=== PATIENT | female | born 1985 | race Caucasian/White ===

== ENCOUNTER 2024-12-14 10:06 | Outpatient (AMB) | payer OTHER, SELFPAY ==
--- NOTE | 2024-12-14 10:08 | A.OFFVIS_ITS ---
Vital Signs 3 12/14/24 10:17 Height 5 ft 4.5 in Weight 284 lb 6 oz BMI 48.1 BP 114/72 Blood Pressure Location Lt brachial Position Sitting Pulse 94 Pulse Source Pulse Oximeter Pulse Oximetry (%) 96 Oxygen Delivery Method Room Air Intake Visit Reasons: Chronic back pain Intake Note: Pain today 04/08 Bark Peeler Required: No Accompanied by: BHN worker Allergies meperidine [From Demerol] Allergy (Mild, Verified 12/14/24 10:16) Unknown seafood Allergy (Mild, Verified 12/14/24 10:16) Unknown acetaminophen [From Tylenol] Allergy (Unknown, Verified 12/14/24 10:42) Unknown Iodinated Contrast Media Allergy (Unknown, Verified 12/14/24 10:41) Unknown pregabalin [From Lyrica] Allergy (Unknown, Verified 12/14/24 10:16) Unknown tramadol Allergy (Unknown, Verified 12/14/24 10:42) Unknown HPI HPI Chronic back pain: Details: The patient is a 39-year-old female presenting with chronic low back pain. This has been a long standing issues for her for past 20 years. The pain's location encompasses the head, neck, middle and lower back, radiating to her legs with a stabbing, shooting, and throbbing quality. This pain is persistent and aggravated by various physical activities including walking and sitting for extended periods. There is significant coexistent morbidity with acute left leg ulcers, bilateral lower extremity edema and erythema tied to venous insufficiency. Reports previous back surgery at [facility] 15 years ago with postoperative complications leading to persistent pain. Various non-invasive therapies are mostly unutilized aside from sporadic past physical therapy sessions, the last being over 7-8 years ago. The patient continues taking significant amount of ibuprofen for pain control despite awareness of potential renal injury. Her functional capacities are greatly compromised; daily activities and self-care are limited, compounded by mental health concerns like severe depression, implication of social networks and routine psychiatric assistance. Denies any fever or chills, abdominal or groin pain, foot drop, bowel dysfunction, or saddle anesthesia. Reports chronic urinary incontinence. - Onset: Approximately 20 years ago - Quality: Stabbing, shooting, spasming, aching, radiating, heavy, tiring, sharp - Primary Locations: Head, neck, mid and lower back, bilateral knee and legs - Radiation: Into legs without specific dermatome distribution. Open ulcers LLE with bilateral leg edema and erythema. - Exacerbating Factors: Standing, walking, sitting, positional changes, climbing stairs - Relieving Factors: Ibuprofen provides minimal relief. Soaking in a tub - Interference: Self-care activities, daily living tasks, bending down and sleep. - Affect: Significant impact on mood with severe depression noted. - Analgesia: Currently using ibuprofen 800 mg 6-10 tablets/day ; aware of kidney risks. - Adverse Effects: Potential nephrotoxicity from chronic ibuprofen usage. - Activities of Daily Living: Severely affected; requires assistance with self- care and ambulation. Uses cane/walker. - Aberrant Drug Related Behaviors: No inappropriate use of medications reported. Reports chronic fatigue with medications. [facility] Medical History (Updated 12/14/24 @ 14:48 by GIBRAN Edge) Leg wound, left Hypocalcemia Hyperlipidemia Therapeutic Varicose veins of legs Urinary incontinence Pre-diabetes Multiple sclerosis History of seizure Disturbance of sleep Cornual Constipation MIKE II (cervical intraepithelial neoplasia II) Chronic vomiting Chronic chest pain Chronic back pain Chronic abdominal pain Cerebral edema Blood pressure elevated without history of HTN Black-out (not amnesia) Asymptomatic bacteriuria Anxiety and depression Alternating constipation and diarrhea Severe depression Costochondritis Chronic low back pain Surgical History (Updated 12/14/24 @ 13:50 by GIBRAN Edge) History of back surgery (09/30/09) Social History Alcohol intake: never Tobacco use type: Cigarette Cigarette Packs Per Day: 1 Review of Systems Const Details: - Musculoskeletal: Reports severe limitations in physical activity, impaired use of arms, difficulty with self-care tasks. - Integumentary: Reports significant leg swelling, erythema, chronic ulcers on legs - Neurologic: Denies recent seizures; longstanding history of seizures. - Gastrointestinal: Reports chronic vomiting, constipation. - Psychological: Reports anxiety, disrupted sleep, severe depression. All systems reviewed & are unremarkable except as noted in HPI and below Physical Exam General: Appears afebrile. Morbidly obese. Alert and oriented. No acute distress. Mood and affect appropriate. Tired appearing. Follows and participates in conversation appropriately. Respiratory effort is unlabored. No cough. Able to transition from sit to stand unassisted. Ambulates with bilaterally normal heel strike and toe off. Uses cane with ambulation. Decreased strength in upper and lower extremities. Limited range of motion in back. Painful facet loading. Significant edema, erythema, and warmth in both legs; open ulcers on the left lower leg with Vern wrap dressing. Bilateral knee with limited ROM due to pain and body habitus. +Crepitus with flexion. Extrem Other: Results Reviewed Results Reviewed: No imaging results are available for review today. Assessment & Plan Assessment & Plan (1) Chronic low back pain: Code(s): M54.50 - Low back pain, unspecified; G89.29 - Other chronic pain Category: Medical (2) Pain in both knees: Code(s): M25.561 - Pain in right knee; M25.562 - Pain in left knee (3) Degeneration of intervertebral disc of lumbar region: Code(s): M51.369 - Other intervertebral disc degeneration, lumbar region without mention of lumbar back pain or lower extremity pain (4) Mid back pain: Code(s): M54.9 - Dorsalgia, unspecified Category: Medical (5) Edema of both lower extremities: Code(s): R60.0 - Localized edema Category: Medical (6) Ulcer of left lower leg: Code(s): L97.929 - Non-pressure chronic ulcer of unspecified part of left lower leg with unspecified severity Category: Medical Plan Plans include obtaining updated imaging for the lumbar spine and knees, initiating an outpatient physical therapy regimen, and continuing management of chronic leg ulcers secondary to venous insufficiency. Interventional pain management procedures are postponed until LLE ulcer clearance and healing of BLE edema and erythema. A review of medications is pending further kidney function assessment. Collaborations will be conducted with her primary care provider to ensure comprehensive management of her medical conditions and recent lab work review. Patient is aware that our office does not offer opioid prescribing. Script provided for diclofenac topical gel. Side effects and precautions discussed with patient. All questions and concerns have been answered and patient agreed with the plan. Follow up for xray results/after PT and sooner as needed. Patient was informed and verbally consented to the use of an ambient scribe for clinic note documentation during this visit. Orders: Orders 2 XR knee RT 3V Today M25.561 - Pain in right knee, M25.562 - Pain in left knee XR lumbar spine 4V min Today G89.29 - Other chronic pain, M51.369 - Other intervertebral disc degeneration, lumbar region without mention of lumbar back pain or lower extremity pain, M54.50 - Low back pain, unspecified XR knee LT 3V Today M25.561 - Pain in right knee, M25.562 - Pain in left knee XR thoracic spine 3V Today M54.9 - Dorsalgia, unspecified PT Evaluation and Treatment Today G89.29 - Other chronic pain, M25.561 - Pain in right knee, M25.562 - Pain in left knee, M51.369 - Other intervertebral disc degeneration, lumbar region without mention of lumbar back pain or lower extremity pain, M54.50 - Low back pain, unspecified, M54.9 - Dorsalgia, unspecified Medications: New 2 diclofenac sodium 1% (Voltaren Arthritis Pain) 4 grams topical QID 100 grams 1RF pain G89.29 - Other chronic pain, M25.561 - Pain in right knee, M25.562 - Pain in left knee, M51.369 - Other intervertebral disc degeneration, lumbar region without mention of lumbar back pain or lower extremity pain, M54.50 - Low back pain, unspecified Patient Instructions: We discussed the current management of her chronic low back pain, focusing on updated imaging and the implementation of physical therapy to enhance musculoskeletal strength. I highlighted the importance of ongoing wound care for her leg ulcers and the ramifications of the cellulitis on interventional procedures. Given the restrictions posed by her current infection, I explained the postponed potential for injections and emphasized the subsequent steps after the resolution of these infections. I discussed the potential for medication revision pending results of kidney function tests, necessitated by her reported ibuprofen intake. The patient expressed adequate understanding of the pain management limitations due to her complex medical and psychological history. Counseling was provided on the continuation of psychiatric management given her severe depression. We have agreed on follow-up for further evaluations dependant of the forthcoming imaging and lab results. - Complete thoracic-lumbar and knee x-rays as discussed. - Attend and engage in physical therapy sessions once started. - Continue prescribed Wound care for leg ulcers. Elevated BLE when sitting. - Avoid NSAIDs in excess and discuss any changes with your primary care physician. - Maintain open communication with psychiatric providers for ongoing mental health management. - Follow up with Vascular consult as planned to address venous issues. - Notify the clinic promptly should any new symptoms arise or if pain management interference occurs. Coding Level of Care Code New Pt Level 4 (36584) Diagnoses Chronic low back pain M54.50; G89.29 Pain in both knees M25.561; M25.562 Degeneration of intervertebral disc of lumbar region M51.369 Mid back pain M54.9 Edema of both lower extremities R60.0 Ulcer of left lower leg L97.929
[2024-12-14 10:17] VITALS: BP 114/72; PULSE 94; O2SAT 96; BMI 48.1
--- OUTSIDE RECORDS SUMMARY | 2024-12-14 11:17 | XMS_ITS | Encounter Summary ---
Author Organization [employer] Address [address] [facility] [address] [place] [address] Care Team Providers Care Professional Golf Tournament Player Name Role Phone Unavailable Primary Care Provider Unavailabl e Encounter Details Date Type Department Care Team (Late st Contact Info) Description 03/11/2023 Telephone [facility] [address] [place] [address] Gabriela Toussaint DDS Social History Tobacco Use Types Packs/Day Years Used Date Smoking Tobacco: Never Assessed Comments Unknown Sex and Gender Information Value Date Recorded Sex Assigned at Female 07/30/2022 10:22 AM EDT Legal Sex Female 10:22 AM EDT Gender Identity Female 07/30/2022 10:22 AM EDT Sexual Orientation Straight 07/30/2022 10 :22 AM EDT COVID-19 Exposure Response Date Recorded In the last 10 days, have yo u been in contact with someone who was confirmed or suspected to have Coronavirus/COVID-19? No / Unsure 03/01/2023 8:39 AM EDT documented as of this encounter Miscellaneous Notes * Telephone Encounter - Yolis Edward - 03/11/2023 8:04 AM EDT The Lab called and stated that the case will be in office on Saturday. documented in this encounter Plan of Treatment Not on file documented as of this encounter Visit Diagnoses Not on filedocumented in this encounter
--- OUTSIDE RECORDS SUMMARY | 2024-12-14 11:17 | XMS_ITS | Clinical Summary ---
Author Organization [employer] Address [address] [facility] [address] [place] [address] Care Team Providers Care Data Integration Architect Name Role Phone Unavailable Primary Care Provider Unavailabl e Allergies Active Allergy Reactions Criticality Noted Date Comments Acetaminophen 07/17/2023 Meperidine 07/17/2023 Pregabalin 07/17/2023 Shellfish Allergy 07/17/2023 Tramadol 07/17/2023 Medications venlafaxine XR (Effexor XR) 150 MG 24 hr capsule Take 150 mg by mouth in the morning. 12/28/2022 Active topiramate (Topamax Sprinkle) 25 MG capsule TAKE 1 TABLET AT BEDTIME FOR 1 WEEK AND THEN INCREASE TO THE 2 TABLETS AT BEDTIME 11/27/2022 Active topiramate (Topamax Sprinkle) 25 MG capsule Take 50 mg by mouth. 11/27/2022 Active prazosin (Minipress) 2 MG capsule TAKE 2 CAPSULES BY MOUTH EVERY DAY AT BEDTIME 12/27/2022 Active naproxen (Naprosyn) 500 MG tablet TAKE 1 TABLET BY MOUTH 2 TIMES A DAY NEEDED FOR PAIN 06/27/2022 Active nystatin (Mycostatin) 703987 UNIT/ML suspension Take 4 to 6ml and swish the liquid in your mouth for as long as possible, then gargle and swallow. Do this four times a day. 473 mL 12/31/2023 Active Social History Tobacco Use Types Packs/Day Years Used Date Smoking Tobacco: Former Cigarettes Smokeless Tobacco: Never Tobacco Cessation:Counseling Given: Not Answered Alcohol Use Standard Drinks/Week Comments Not Currently 0 (1 standard drink = 0.6 oz pur e alcohol) Comments Unknown Sex and Gender Information Value Date Recorded Sex Assigned at Female 07/30/2022 10:22 AM EDT Legal Sex Female 10:22 AM EDT Gender Identity Female 07/30/2022 10:22 AM EDT Sexual Orientation Straight 07/30/2022 10 :22 AM EDT Plan of Treatment Health Maintenance Due Date Last Done Comments Dental Oral Exam 1985 Dental Prophylaxis 1985 Dental X-Ray: Bitewings 1985 Dental X-Ray: Full Mouth 1985 Depression Screening 1985 HIV Screening 1985 Lipid Panel 1985 SDOH Screening 1985 Alcohol/Substance Use Screening 1997 Family Planning (PISQ) 2000 Hepatitis C Screening 2003 DTaP/Tdap/Td Vaccines (1 - Tdap) 2004 Hepatitis B Vaccines (1 of 3 - 19+ 3-dose series) 2004 Pap Smear 2006 Cervical Cancer Screening 2015 HPV/Cotest 2015 COVID-19 Vaccine ( - 2023-2 5 season) 2024 Influenza Vaccine (#1) 2024 Tobacco Screening 01/16/2025 01/17/2024 Zoster Vaccines (1 of 2) 2035 RSV Patients and Pa tients Aged 60 years or older (1 - 1-dose 75+ series) 2060 Hepatitis A Vaccines Aged Out 11/11/2014 No long er eligible based on patient's age to complete this topic HIB Vaccines Aged Out No longer eligi ble based on patient's age to complete this topic HPV Vaccines Aged Out No longer eligi ble based on patient's age to complete this topic IPV Vaccines Aged Out No longer eligi ble based on patient's age to complete this topic Meningococcal Vaccine Aged Out No mariano loida eligible based on patient's age to complete this topic Pneumococcal Vaccine: Pediat rics (0 to 5 Years) and At-Risk Patients (6 to 49) Years) Aged Out No longer elig ible based on patient's age to complete this topic RSV under 20 months Aged Out No longe r eligible based on patient's age to complete this topic Rotavirus Vaccines Aged Out No longer eligible based on patient's age to complete this topic Insurance [facility] MEDICAID STAND ADULT
--- OUTSIDE RECORDS SUMMARY | 2024-12-14 11:17 | XMS_ITS ---
Author Name [facility] Organization Unknown Encounters Encounter Type Encounter Reason Primary Diagnosis Location Date Ambulatory [facility] 10/13/2024
--- OUTSIDE RECORDS SUMMARY | 2024-12-14 11:17 | XMS_ITS | Clinical Summary ---
[facility] Organization [facility] Address [address] [place] [address] Care Team Providers Care Superintendent Landfill Operations Name Role Phone Antione Traylor MD Primary Care Provider [phone] Surgical History Surgery Date Site/Laterality Comments CERVICAL BIOPSY W/ LOOP ELECTRODE EXCISION PROCEDURE: VA CONIZATION CERVIX W/WO D&C RPR ELTRD EXC KNEE SURGERY PROCEDURE: HISTORICAL KNEE SURGERY TONSILLECTOMY PROCEDURE: HISTORICAL TONSILLECTOMY OTHER SURGICAL HISTORY PROCEDURE: VA EXPL RETROPERITONEUM W/WO BX SPX BACK SURGERY PROCEDURE: HISTORICAL BACK SURGERY Family History Medical History Relation Name Comments Autoimmune disease Neg Hx Breast cancer Neg Hx Colon cancer Neg Hx Coronary artery disease Neg Hx Diabetes Neg Hx Heart attack Neg Hx Heart failure Neg Hx Hyperlipidemia Neg Hx Hypertension Neg Hx Mental illness Neg Hx Prostate cancer Neg Hx Sleep apnea Neg Hx Thyroid disease Neg Hx Relation Name Status Comments Father Mother Sister 1 Alive Sister 2 Alive Sister 3 Alive Sister 4 Alive Social History Tobacco Use Types Packs/Day Years Used Date Smoking Tobacco: Every Day Cigarettes Alcohol Use Standard Drinks/Week Comments No 0 (1 standard drink = 0.6 oz pur e alcohol) Comments Unknown Sex and Gender Information Value Date Recorded Sex Assigned at Not on file Legal Sex Female 3:48 PM EST Gender Identity Not on file Sexual Orientation Not on file Obstetrics History Plan of Treatment Health Maintenance Due Date Last Done Comments DTaP,Tdap,and Td Vaccines (1 - Tdap) 2004 Hepatitis A Vaccines (1 of 2 - Risk 2-dose series) 2004 Hepatitis B Vaccines (1 of 3 - 19+ 3-dose series) 2004 Pneumococcal Vaccine: Pediat rics (0 to 5 Years) and At-Risk Patients (6 to 64 Years) (1 of 2 - PCV) 2004 Cervical Cancer Screening: P ap Smear 2006 Depression Screening 08/29/2022 HIV Screening 08/29/2022 Hepatitis C Screening 08/29/2022 Social Influencers of Health Screening 08/29/2022 COVID-19 Vaccine ( - 2023-2 5 season) 2024 Influenza Vaccine (#1) 2024 HIB Vaccines Aged Out No longer eligi ble based on patient's age to complete this topic HPV Vaccines Aged Out No longer eligi ble based on patient's age to complete this topic IPV Vaccines Aged Out No longer eligi ble based on patient's age to complete this topic MMR Vaccines Aged Out No longer eligi ble based on patient's age to complete this topic Meningococcal ACWY Vaccine Aged Out N o longer eligible based on patient's age to complete this topic Meningococcal B Vacine Aged Out No lo nger eligible based on patient's age to complete this topic RSV Immunization Patients Un danya 20 months Aged Out No longer eligible b ased on patient's age to complete this topic Varicella Vaccines Aged Out No longer eligible based on patient's age to complete this topic Care Teams Superintendent Landfill Operations Relationship Specialty Start Date End Date Antione Traylor MD [address] [place] [address] PCP - General Internal Medicine 06/06/18
== END 2024-12-14 10:47 | disposition home or self-care (01) ==
PROVIDERS: PCP Physician Assistant; Visit Provider Nurse Practitioner Family
DX: M54.50 Low back pain, unspecified (principal); G89.29 Other chronic pain; M25.561 Pain in right knee; M25.562 Pain in left knee; M51.369 Other intervertebral disc degeneration, lumbar region without mention of lumbar back pain or lower extremity pain; M54.9 Dorsalgia, unspecified; R60.0 Localized edema; L97.929 Non-pressure chronic ulcer of unspecified part of left lower leg with unspecified severity
CPT/HCPCS: 99204

== ENCOUNTER 2024-12-14 10:06 | Outpatient (REF) | payer OTHER, SELFPAY ==
--- NOTE | ~2024-12-14 | XR_ITS ---
EXAMINATION: Lumbar spine 4-5 views. CLINICAL INDICATION: Low back pain. COMPARISON: None. FINDINGS: There is normal lumbar lordosis. The vertebral heights, alignment and disc heights are normal. No visible acute fracture, dislocation or subluxation seen. SI joints are symmetrical and normal. There is no pars defect or listhesis on oblique views. This paravertebral soft tissues are normal. XR/XR lumbar spine 4V min IMPRESSION: Unremarkable lumbar spine exam. Electronically signed by: Link Malagon MD 12/14/2024 05:36 PM EDT
--- NOTE | ~2024-12-14 | XR_ITS ---
CLINICAL HISTORY: M54.9 - Dorsalgia, unspecified 3 views thoracic spine Comparison: None Findings: Normal vertebral body alignment. No acute fractures or dislocation. Mild multilevel degenerative disc disease. Interstitial opacities in the lungs may be bronchovascular crowding from low lung volumes, pulmonary edema or atypical infection. IMPRESSION: No acute fracture or listhesis of the thoracic spine. Interstitial opacities in the lungs may be bronchovascular crowding from low lung volumes, pulmonary edema or atypical infection. This document has been electronically signed by: Carlin Ayala MD on 12/15/2024 18:21:10
--- NOTE | ~2024-12-14 | XR_ITS ---
CLINICAL HISTORY: M25.561 - Pain in right knee 3 view left knee Comparison: None Findings: No fractures or dislocations. Tricompartmental osteoarthritis. Anterior soft tissue swelling. No joint effusion. No radiopaque foreign body. IMPRESSION: No acute osseous injury. Anterior soft tissue swelling. This document has been electronically signed by: Carlin Ayala MD on 12/15/2024 18:19:03
--- NOTE | ~2024-12-14 | XR_ITS ---
CLINICAL HISTORY: M25.561 - Pain in right knee 3 view right knee Comparison: None Findings: Bones intact. No dislocations. Tricompartmental osteoarthritis. Anterior soft tissue swelling. No joint effusion. No radiopaque foreign body. IMPRESSION: 1. No acute osseous injury. 2. Anterior soft tissue swelling. This document has been electronically signed by: Carlin Ayala MD on 12/15/2024 18:18:45
== END 2024-12-14 10:07 | disposition home or self-care (01) ==
LOC: HO.XRAY 10:06
PROVIDERS: PCP Physician Assistant; Visit Provider Nurse Practitioner Family
DX: M25.561 Pain in right knee (principal); M25.562 Pain in left knee; M54.9 Dorsalgia, unspecified; M54.50 Low back pain, unspecified; G89.29 Other chronic pain; M51.369 Other intervertebral disc degeneration, lumbar region without mention of lumbar back pain or lower extremity pain; R60.0 Localized edema; L97.929 Non-pressure chronic ulcer of unspecified part of left lower leg with unspecified severity
CPT/HCPCS: 72072; 72110; 73562; 99202

== ENCOUNTER → 2024-12-14 11:14 | Outpatient (BNV) | payer OTHER, SELFPAY | PROVIDERS: PCP Physician Assistant; Visit Provider Radiology Diagnostic Radiology | DX: M54.50 Low back pain, unspecified (principal) | CPT/HCPCS: 72072; 72110; 73562 ==

== ENCOUNTER 2025-02-15 10:50 | Outpatient (AMB) | payer OTHER, SELFPAY ==
[2025-02-15 11:00] VITALS: BP 145/85; PULSE 85; O2SAT 94; BMI 49.4
--- NOTE | 2025-02-15 11:00 | MHC.OFFVIS ---
Vital Signs 02/15/25 11:00 Height 5 ft 4 in Weight 288 lb BMI 49.4 BP 145/85 H Blood Pressure Location Rt brachial Position Sitting Pulse 85 Pulse Source Pulse Oximeter Pulse Oximetry (%) 94 Oxygen Delivery Method Room Air Intake Visit Reasons: CHRONIC BACK PAIN Bookbinder Apprentice Required: No Allergies meperidine [From Demerol] Allergy (Mild, Verified 02/15/25 11:00) Unknown seafood Allergy (Mild, Verified 02/15/25 11:00) Unknown acetaminophen [From Tylenol] Allergy (Unknown, Verified 02/15/25 11:00) Unknown Iodinated Contrast Media Allergy (Unknown, Verified 02/15/25 11:00) Unknown pregabalin [From Lyrica] Allergy (Unknown, Verified 02/15/25 11:00) Unknown tramadol Allergy (Unknown, Verified 02/15/25 11:00) Unknown Medication List - Last Reconciled 02/15/25 by Gabriela Montgomery, COORDINATE MEASURING MACHINE PROGRAMMER diclofenac sodium 1% (Voltaren Arthritis Pain) 4 grams topical QID ibuprofen 600 mg PO Q8H PRN lorazepam 0.5 mg PO DAILY PRN methadone 15 mg PO Q4-6H PRN HPI Comments Details: The patient is a 39-year-old female presenting with chronic low back pain and acute on chronic mid and lower thoracic pain. She also continues to endorse bilateral leg pain with active cellulites. She presents with bilateral lower extremity wound dressings and emre wraps due to open ulcers on her lower extremities. The low back pain has been chronic over 20 years, described with characteristics such as shooting, aching, stabbing, and radiating sensations. Mild multilevel degenerative disc disease has been identified in the thoracic spine, causing significant impairment, specifically with movements like leaning backward. Previously, 15 years ago, she underwent surgery for an arachnoid cyst located between her lumbar and thoracic spine, and recently, she has been diagnosed with white matter disease and MS, with MRIs showing brain swelling per patient. This was complete at [facility], reports is not available today. The patient continues on methadone therapy at a dose of 70 mg, although she reports minimal pain relief. - Chronic since 20 years - Quality: Shooting, aching, stabbing, radiating, and sharp - Location: Lower back, thoracic, both knees, legs, neck - Exacerbated by: Leaning backwards, movement - Alleviation attempts: Methadone 70 mg, ibuprofen, heat, and ice - Affect: Pain persists despite medication, causing significant distress and interference with activities. - Analgesia: Current medications include methadone at 70 mg with limited relief; ibuprofen noted to be ineffective. - Adverse Effects: No specific adverse effects from pain medication noted, but persistent pain leads to impaired sleeping. - Activities of Daily Living: Difficulties with movement, leaning backwards, walking due to dislocation issues, and potential impairment from multiple sclerosis per patient. - Aberrant Drug Related Behaviors: Not explicitly discussed. No evidence of misuse noted in the conversation. [facility] Medical History (Updated 02/15/25 @ 11:11 by GIBRAN Edge) Leg wound, left Hypocalcemia Hyperlipidemia Therapeutic Varicose veins of legs Urinary incontinence Pre-diabetes Multiple sclerosis History of seizure Disturbance of sleep Cornual Constipation MIKE II (cervical intraepithelial neoplasia II) Chronic vomiting Chronic chest pain Chronic back pain Chronic abdominal pain Cerebral edema Blood pressure elevated without history of HTN Black-out (not amnesia) Asymptomatic bacteriuria Anxiety and depression Alternating constipation and diarrhea Severe depression Costochondritis Chronic low back pain Surgical History (Updated 12/14/24 @ 13:50 by GIBRAN Edge) History of back surgery (09/30/09) Social History Alcohol intake: never Tobacco use type: Cigarette Cigarette Packs Per Day: 1 Review of Systems Const Details: - Musculoskeletal: Reports chronic back and knee pain - Integumentary: Reports open ulcers on lower extremities - Neurological: Reports brain swelling, history of arachnoid cyst, white matter disease All systems reviewed & are unremarkable except as noted in HPI and below Physical Exam Vital Signs: Last Vital Signs Pulse 85 02/15/25 11:00 BP 145/85 H 02/15/25 11:00 Pulse Ox 94 02/15/25 11:00 Oxygen Delivery Method Room Air 02/15/25 11:00 BMI result Body Mass Index 49.4 General: Appears afebrile. Morbidly obese. Alert and oriented. Moderately in distress due to mid and low back pain. Mood and affect appropriate. Follows and participates in conversation appropriately. Respiratory effort is unlabored. No cough. Able to transition from sit to stand unassisted. Ambulates with bilaterally normal heel strike and toe off. Uses cane with ambulation. General: Yes no CVA tenderness Back/Spine/Pelvis Other: Limited thoracolumbar ROM due to pain. Decreased strength in upper and lower extremities. Painful facet loading. Bilateral lower extremities dressed in EMRE wrap dressings, dry and intact. Bilateral knee with limited ROM due to pain and body habitus. +Crepitus with flexion. Back: no CVA tenderness Cervical Spine: cervical ROM normal, cervical muscular tenderness and No Cervical spine tenderness Thoracic/Lumbar Spine: thoracic and lumbar spine normal to inspection, Lasegue's sign negative, straight leg raise negative bilaterally, pain with thoraco-lumbar ROM, paraspinal muscle tenderness, thoraco-lumbar ROM limited, thoracic spinal tenderness (mid to lower thoracic) and lumbar spinal tenderness (L4-S1) Pelvis: buttock tenderness bilaterally Sacroiliac joints: bilaterally tender to palpation Results Reviewed Results Reviewed: XR thoracic spine 3V 12/15/24 Findings: Normal vertebral body alignment. No acute fractures or dislocation. Mild multilevel degenerative disc disease. Interstitial opacities in the lungs may be bronchovascular crowding from low lung volumes, pulmonary edema or atypical infection. IMPRESSION: No acute fracture or listhesis of the thoracic spine. Interstitial opacities in the lungs may be bronchovascular crowding from low lung volumes, pulmonary edema or atypical infection. Lumbar spine 4-5 views 12/15/24 CLINICAL INDICATION: Low back pain. COMPARISON: None. FINDINGS: There is normal lumbar lordosis. The vertebral heights, alignment and disc heights are normal. No visible acute fracture, dislocation or subluxation seen. SI joints are symmetrical and normal. There is no pars defect or listhesis on oblique views. This paravertebral soft tissues are normal. IMPRESSION: Unremarkable lumbar spine exam. Assessment & Plan Assessment & Plan (1) Bilateral primary osteoarthritis of knee: Code(s): M17.0 - Bilateral primary osteoarthritis of knee Category: Medical (2) Bilateral knee pain: Code(s): M25.561 - Pain in right knee; M25.562 - Pain in left knee Category: Medical (3) Mid back pain: Code(s): M54.9 - Dorsalgia, unspecified Category: Medical (4) Thoracic degenerative disc disease: Code(s): M51.34 - Other intervertebral disc degeneration, thoracic region Category: Medical Plan Thoracic spine MRI results to assess for neural integrity and compression and follow up on previous xray findings and considering historical surgical intervention for an arachnoid cyst and recent neurological findings. Methadone will continue at the current prescription with a focal evaluation on the necessity for adjustment during follow-ups at the methadone clinic. Patient will continues to follow up with [facility] services to manage BLE cellulites and dressing changes. For bilateral knee pain, will place Orthopedic consultation. All questions and concerns have been answered and patient agreed with the plan. Follow up for MRI results and sooner as needed. Patient was informed and verbally consented to the use of an ambient scribe for clinic note documentation during this visit. Orders: Orders MR thoracic spine wo con Today G96.198 - Other disorders of meninges, not elsewhere classified, M51.34 - Other intervertebral disc degeneration, thoracic region, M54.9 - Dorsalgia, unspecified Referrals Orthopedics Referral M17.0 - Bilateral primary osteoarthritis of knee, M25.561 - Pain in right knee, M25.562 - Pain in left knee Coding Level of Care Code Est Pt Level 4 (47149) Complex EM visit Add On G2211 Diagnoses Bilateral primary osteoarthritis of knee M17.0 Bilateral knee pain M25.561; M25.562 Mid back pain M54.9 Thoracic degenerative disc disease M51.34
--- OUTSIDE RECORDS SUMMARY | 2025-02-15 11:27 | XMS_ITS | Clinical Summary ---
Author Organization [employer] Address [address] [place] [address] Care Team Providers Care Apparel Embroidery Digitizer Name Role Phone Unavailable Primary Care Provider [...] NEEDED FOR PAIN 06/27/2022 Active nystatin (Mycostatin) 696817 UNIT/ML suspension Take 4 to 6ml and [...] age to complete this topic Meningococcal B Vaccine Aged Out No l onger eligible based on patient's age to complete [...] patient's age to complete this topic Insurance [facility] MEDICA[facility] STAND ADULT
--- OUTSIDE RECORDS SUMMARY | 2025-02-15 11:27 | XMS_ITS | Continuity of Care Document ---
Author Organization [facility] Address [address] [place] [address] Phone Care Team Providers Care Pole Framer Machine Name Role Phone Agusto KEYS, RVT, EDMAR, Jacob Unavailable U navailable [...] Mins- [place] & [place] [facility], [address], [id number], [place] tel:[phone] CVR - [place] [facility] [place] Chest pain, unspecifiedCr amp and spasmLocalize d edemaChronic venous hypertension (idiopathic) without complications of bilateral lower extremityType 2 diabetes mellitus without complications Restless legs syndromePruri tus, unspecifiedDi sorder of pigmentation, unspecifiedPa in in right legPain in left leg Dec- 5 Agusto KEYS, ARYAT, RPLASHAWN James. [address] [place] [address], [place], [id number], [place]. tel:[phone] [place] [facility], [address] [place] [address] [address], [id number], [place] tel:[phone] CVR - [facility] Varicose veins of bilateral lower extremities with pain Dec- 5 Agusto EKYS RVT, EDMAR James. [address] [place] [address], [facility] [place], [id number], [place]. tel:[phone] Referring Provider: Jacob Liz MD, MARITZA, EDMAR, [address] [place] [address], [facility] [place], [address] . tel:[phone] [place] [facility], [address] [place] [address] [address] [place], [id number], [place] tel:[phone] [facility] - [place] [facility] No Information 4 Agusto KEYS RVT, EDMAR James. [address] [place] [address], [place], [id number], [place]. tel:[phone] Offic/outpt E&m Estab 5 Min Trial- Telemedicine CT & [place] [facility], [address] [place] [address] [address], [id number], [place] tel:[phone] CVR - [facility] Varicose veins of right lower extremity with inflammationV aricose veins of left lower extremity with inflammationL ocalized edemaPruritus , unspecifiedDi sorder of pigmentation, unspecifiedCh est pain, unspecified 0 4 Carlos Gonzales. [facility], [address], [place], [id number], [place]. tel:[phone] Offic/outpt E&m Estab 5 Min Trial - Telemedicine [place] [facility] MD GUEVARA, [address] [place] [address] [address] [place], [id number], [place] tel:[phone] CVR - [place] [facility] Varicose veins of right lower extremity with inflammationV aricose veins of left lower extremity with inflammationL ocalized edemaPruritus , unspecifiedDi sorder of pigmentation, unspecifiedFl ail joint, unspecified jointChest pain, unspecified Brando-0 4 Carlos Gonzales. [address] [place] [address], [place], [id number], [place]. tel:[phone] Office/Oupt E&M New Pt 45 Mins [facility], [address] [place] [address] [facility] [address], [place], [id number], [place] tel:[phone] CV[facility] - [place] [facility] [place] Varicose veins of right lower extremity with inflammationV aricose veins of left lower extremity with inflammationP ain in right lower legPain in left lower legPruritus, unspecifiedDi sorder of pigmentation, unspecifiedFl ail joint, unspecified jointPain in right legPain in left legChest pain, unspecifiedLo calized edema 3 Panda KEYS FACS T [facility] Kimberly Ambrose. [address] [place] [address], [place], [address], [place]. tel:[phone] Referring Provider: Kimberly Mosqueda MD [facility], [address] [place] [address], [place], [id number]. tel:[phone] [facility], [address] [place] [address] [address], [place], [id number], [place] tel:[phone] CV[facility] - [place] [facility] Varicose veins of bilateral lower extremities with pain 3 Panda KEYS FACS T [facility] Kimberly Ambrose. [address] [place] [address], [place], [id number], [place]. tel:[phone] Referring Provider: Kimberly Mosqueda MD FACS T [facility], [address] [place] [address], [place], [address]. tel:[phone] Family History Family Member Type Diagnosis Age At Onset No Information Payers Payer name Insurance type Covered republican ID Luis gross(s) [employer] [facility] CI [id number] Social History Type Description Quantity Date Captured [...] Body mass index (BMI) 45.0-49.9, adult) ordered Appointment Charisma Palacio History Of Present Illness Encounter Date Complaint [...]
--- OUTSIDE RECORDS SUMMARY | 2025-02-15 11:28 | XMS_ITS | Encounter Summary ---
Author Organization [facility] [place] [address] Care Team Providers Care Animal Services Officer Name Role Phone Antione Traylor MD Primary Care Provider [phone] Encounter Details Date Type Department Care Team (Latest Contact Info) Description 01/12/2025 Lab Requisition [facility] - Main Lab [address] [facility] [employer] [place] [address] Josy Brown MD [address] [phone] Encounter for screening for infections with a predominantly sexual mode of transmission Social History Tobacco Use Types Packs/Day Years Used Date Smoking Tobacco: Every Day Cigarettes Alcohol Use Standard Drinks/Week Comments No 0 (1 standard drink = 0.6 oz pur e alcohol) Comments Unknown Sex and Gender Information Value Date Recorded Sex Assigned at Not on file Legal Sex Female 3:48 PM EST Gender Identity Not on file Sexual Orientation Not on file documented as of this encounter Plan of Treatment Not on file documented as of this encounter Procedures Procedure Name Priority Date/Time Associated Diagnosis Comments CHLAMYDIA TRACHOMATIS AND NEISSERIA GONORRHOEAE PCR Routine 01/12/2025 12:00 AM EDT Encounter for screening for infections with a predominantly sexual mode of transmission documented in this encounter Results * Chlamydia trachomatis and Neisseria gonorrhoeae molecular study (01/12/2025 12:00 AM EDT) Neisseria gonorrhoeae PCR Negative Negative LAB MOLECULAR DIAGNOSTICS METHOD 01/13/2025 10:41 AM EDT [facility] Chlamydia trachomatis PCR Negative Negative LAB MOLECULAR DIAGNOSTICS METHOD 01/13/2025 10:41 AM EDT [facility] Swab Cervix uteri structure / Unknown 01/12/2025 01/12/2025 2:08 PM EDT us Josy Brown MD LAB MICROBIOLOGY - GENER AL ORDERABLES Final Result [facility] [address] [place] [address], documented in this encounter Visit Diagnoses Diagnosis Encounter for screening for infections with a predominantly sexual mode of transmission documented in this encounter Care Teams Animal Services Officer Relationship Specialty Start Date End Date Antione Traylor MD [address] [place] [id number] PCP - General Internal Medicine 06/06/18 documented as of this encounter
--- OUTSIDE RECORDS SUMMARY | 2025-02-15 11:28 | XMS_ITS | Clinical Summary ---
Author Organization 299 [facility] Address [address] [place] [address] Phone Care Team Providers Care Mechanical Applications Engineer Name Role Phone Antione Traylor MD Primary Care Provider [phone] Encounters Date Type Department Care Team Description 01/13/2025 Lab Requisition [facility] Lab [address] [place] [address] Josy Brown MD Encounter for gynecological examination (general) (routine) without abnormal findings 01/12/2025 Lab Requisition [facility] Lab [address] [place] [address] Josy Brown MD Encounter for screening for infections with a predominantly sexual mode of transmission from Last 3 Months Surgical History Surgery Date Site/Laterality Comments CERVICAL BIOPSY W/ LOOP ELECTRODE EXCISION PROCEDURE: CA CONIZATION CERVIX W/WO D&C RPR ELTRD EXC KNEE SURGERY PROCEDURE: HISTORICAL KNEE SURGERY TONSILLECTOMY PROCEDURE: HISTORICAL TONSILLECTOMY OTHER SURGICAL HISTORY PROCEDURE: CA EXPL RETROPERITONEUM W/WO BX SPX BACK SURGERY [...] Td Vaccines (1 - Tdap) 2004 Hepatitis B Vaccines (1 of 3 - 19+ 3-dose series) 2004 Pneumococcal Vaccine: Pediatrics (0 to 5 Years) and At-Risk Patients (6 to 64 Years) (1 of 2 - PCV) 2004 Hepatitis A Vaccines (2 of 2 - Risk 2-dose series) 05/11/2015 11/11/2014 Cholesterol Screening (Lipid Panel) 08/29/2022 Depression Screening 08/29/2022 HIV Screening 08/29/2022 Hepatitis C Screening 08/29/2022 Social Influencers of Health Screening 08/29/2022 COVID-19 Vaccine (1 - 2023-2 5 season) 2024 Influenza Vaccine (Season Ended) 2025 Cervical Cancer Screening: HPV 01/12/2030 0 01/12/2025, 01/12/2025 HIB Vaccines Aged Out No longer eligi [...] to complete this topic RSV Immunization Patients Under 20 months Aged Out No longer eligible b ased on patient's age to complete this topic Varicella Vaccines Aged Out No longer eligible based on patient's age to complete this topic Procedures Procedure Name Priority Date/Time Associated Diagnosis Comments THYROID STIMULATING HORMONE WITH REFLEX TO FREE T4 AND FREE T3 Routine 01/12/2025 10:48 AM EDT Oligomenorrhea TESTOSTERONE FREE, BIOAVAILABLE AND TOTAL Routine 01/12/2025 10:48 AM EDT Oligomenorrhea ESTRADIOL Routine 01/12/2025 10:48 AM EDT Oligomenorrhea SEX HORMONE BINDING GLOBULIN Routine 01/12/2025 10:48 AM EDT Oligomenorrhea PROGESTERONE Routine 01/12/2025 10:48 AM EDT Oligomenorrhea FOLLICLE STIMULATING HORMONE Routine 01/12/2025 10:48 AM EDT Oligomenorrhea LUTEINIZING HORMONE Routine 01/12/2025 1 0:48 AM EDT Oligomenorrhea PROLACTIN Routine 01/12/2025 10:48 AM EDT Oligomenorrhea PAP SMEAR Routine 01/12/2025 12:00 AM EDT Encounter for gynecological examination (general) (routine) without abnormal findings HPV GENOTYPE Routine 01/12/2025 12:00 AM EDT Encounter for gynecological examination (general) (routine) without abnormal findings HPV WITH REFLEX GENOTYPE Routine 01/12/2025 12:00 AM EDT Encounter for gynecological examination (general) (routine) without abnormal findings CHLAMYDIA TRACHOMATIS AND NEISSERIA GONORRHOEAE PCR Routine 01/12/2025 12:00 AM EDT Encounter for screening for infections with a predominantly sexual mode of transmission from Last 3 Months Results * Thyroid stimulating hormone with reflex to free t4 and free t3 (01/12/2025 10:48 AM EDT) TSH 1.84 0.40 - 4.00 mcIU/mL LAB CHEMISTRY METHOD 01/13/2025 11:37 AM EDT [facility] Blood Venous blood specimen / Unknown Venipuncture / Unknown 01/12/2025 10:48 AM EDT 01/12/2025 12:07 PM EDT Josy Brown MD LAB BLOOD ORDERABLES Fin al Result Performing Organization Address City/[facility]/ZIP Co de Phone Number [facility] [address] [place] [address], [place] [phone] * (ABNORMAL) Testosterone free, bioavailable and total (01/12/2025 10:48 AM EDT) [facility] Testosterone 15 9 - 48 ng/dL LAB CHEMISTRY METHOD 01/12/2025 4:42 PM EDT [facility] Testosterone, Free 0.7(H) 0.0 - 0.5 ng/dL LAB CHEMISTRY METHOD 01/12/2025 4:42 PM EDT [facility] Testosterone, Bioavailable 14(H) 1 - 9 ng/dL LAB CHEMISTRY METHOD 01/12/2025 4:42 PM EDT [facility] Sex Hormone Binding 2.8 See Comment nmol/L LAB CHEMISTRY METHOD 01/12/2025 4:42 PM EDT [facility] Comment: FEMALES: ??pre-menopausal ?? 10.8 - >180 ??post-menopausal ??23.2 - 159.1 MALES: ?? 21-49 years ? 14.6 - 94.6 ?? 50-89 years ? 21.6 - 113.1 CHILDREN: ??No established reference range Over the counter supplements containing high doses of biotin may interfere with this assay. ??If interference is suspected, patients should be retested after refraining from biotin supplements for 72 hours. Albumin 3.7 3.2 - 5.0 g/dL LAB CHEMISTRY METHOD 01/12/2025 4:42 PM EDT [facility] Blood Venous blood specimen / Unknown Venipuncture / Unknown 01/12/2025 10:48 AM EDT 01/12/2025 12:07 PM EDT Josy Brown MD LAB BLOOD ORDERABLES Fin al Result Performing Organization Address City/[facility]/ZIP Co de Phone Number [facility] [address] [place] [address], [place] [phone] * Sex hormone binding globulin (01/12/2025 10:48 AM EDT) [facility] Sex Hormone Binding 2.8 See Comment nmol/L LAB CHEMISTRY METHOD 01/12/2025 4:42 PM EDT [facility] Comment: FEMALES: ??pre-menopausal ?? 10.8 - >180 ??post-menopausal ??23.2 - 159.1 MALES: ?? 21-49 years ? 14.6 - 94.6 ?? 50-89 years ? 21.6 - 113.1 CHILDREN: ??No established reference range Over the counter supplements containing high doses of biotin may interfere with this assay. ??If interference is suspected, patients should be retested after refraining from biotin supplements for 72 hours. Blood Venous blood specimen / Unknown Venipuncture / Unknown 01/12/2025 10:48 AM EDT 01/12/2025 12:07 PM EDT us Josy Brown MD LAB BLOOD ORDERABLES Fin al Result [facility] [address] [place] [address], [place] [phone] * Prolactin (01/12/2025 10:48 AM EDT) [facility] Prolactin 4.00 See Comment ng/mL LAB CHEMISTRY METHOD 01/12/2025 1:23 PM EDT [facility] Comment: Prolactin Reference Ranges (ng/mL) ??Non ?2.2 - ??30.3 ? 8.1 - 347.6 ??Postmenopausal 0.7 - ??31.5 Blood Venous blood specimen / Unknown Venipuncture / Unknown 01/12/2025 10:48 AM EDT 01/12/2025 12:07 PM EDT us Josy Brown MD LAB BLOOD ORDERABLES Fin al Result Performing Organization Address [facility]/ZIP Co de Phone Number [facility] [address] [place] [address], * Progesterone (01/12/2025 10:48 AM EDT) Progesterone 0.5 ng/mL LAB CHEMISTRY METHOD 01/12/2025 1:23 PM EDT [facility] Comment: PROGESTERONE REFERENCE RANGES (NG/ML) FEMALES NORMALLY MENSTRUATING: FOLLICULAR PHASE 0.2 - ??1.7 MIDCYCLE PEAK ?2.3 - ??242 LUTEAL PHASE ? 8.8 - 21.6 POSTMENOPAUSAL ?<0.2 - ??0.9 : FIRST TRIMESTER ??11.4 - 41.0 SECOND TRIMESTER 13.5 - ??156 THIRD TRIMESTER ??51.4 - >200 This assay should not be used in patients taking DHEA supplements as part of IVF treatment. ??A metabolite (DHEA-S) of this supplement has been shown to cross- react with the progesterone assay and cause falsely elevated results. Blood Venous blood specimen / Unknown Venipuncture / Unknown 01/12/2025 10:48 AM EDT 01/12/2025 12:07 PM EDT Josy Brown MD LAB BLOOD ORDERABLES Fin al Result Performing Organization Address [facility] Co de Phone Number [facility] [address] [place] [address], [place] [phone] * Estradiol (01/12/2025 10:48 AM EDT) Estradiol 40 See below pcg/mL LAB CHEMISTRY METHOD 01/12/2025 1:23 PM EDT [facility] Comment: ESTRADIOL REFERENCE RANGES (PG/ML) FEMALES NORMALLY MENSTRUATING: FOLLICULAR PHASE 21.4 - 164.8 MIDCYCLE PEAK ?49.9 - 367.2 LUTEAL PHASE ? 40.2 - 259.0 POSTMENOPAUSAL: ON HRT ?<11 - 462.1 UNTREATED ? <11 - ??58.3 Fulvestrant has been shown to cross-react with the estradiol assay and cause falsely elevated results. For patients being treated with fulvestrant, Estradiol ultrasensitive should be ordered. ??This test is performed by LC/MS and is not expected to show cross reactivity to fulvestrant. Blood Venous blood specimen / Unknown Venipuncture / Unknown 01/12/2025 10:48 AM EDT 01/12/2025 12:07 PM EDT Josy Brown MD LAB BLOOD ORDERABLES Timothy jones Result Performing Organization Address [facility] Co de Phone Number [facility] [address] [place] [address], * Luteinizing hormone (01/12/2025 10:48 AM EDT) [facility] Signature Luteinizing Hormone 6.0 See Comment mIU/mL LAB CHEMISTRY METHOD 01/12/2025 1:23 PM EDT [facility] Blood Venous blood specimen / Unknown Venipuncture / Unknown 01/12/2025 10:48 AM EDT 01/12/2025 12:07 PM EDT Narrative [facility] - 01/12/2025 1:23 PM EDT LH REFERENCE RANGES (MIU/ML) FEMALES NORMALLY MENSTRUATING: FOLLICULAR PHASE ??1.9 - 12.8 MIDCYCLE PEAK ?22.8 - 76.1 LUTEAL PHASE ?0.6 - 13.5 POSTMENOPAUSAL: ON HRT ?1.1 - ??52.4 UNTREATED ? 8.6 - ??61.8 Josy Brown MD LAB BLOOD ORDERABLES Timothy al Result Performing Organization Address City/[facility]/ZIP Co de Phone Number [facility] [address] [place] [address], * Follicle stimulating hormone (01/12/2025 10:48 AM EDT) [facility] Follicle Stimulating Hormone 9.1 See Comment mIU/mL LAB CHEMISTRY METHOD 01/12/2025 2:17 PM EDT [facility] Comment: FSH REFERENCE RANGES (MIU/ML) FEMALES NORMALLY MENSTRUATING: FOLLICULAR PHASE ??2.3 - 12.6 MIDCYCLE PEAK ? 5.2 - 17.5 LUTEAL PHASE ?1.7 - ??9.5 POSTMENOPAUSAL: ON HRT ?5.9 - ??72.8 UNTREATED ?12.7 - 132.2 Blood Venous blood specimen / Unknown Venipuncture / Unknown 01/12/2025 10:48 AM EDT 01/12/2025 12:07 PM EDT Josy Brown MD LAB BLOOD ORDERABLES Fin al Result Performing Organization Address [facility]/State/ZIP Co de Phone Number [facility] [address] [place] [address], [place] [phone] * HPV genotype (01/12/2025 12:00 AM EDT) [facility] HPV Type 16 Negative Negative LAB MICROBIOLOGY METHOD 01/15/2025 1:21 PM EDT [facility] HPV Type 18/45 Negative Negative LAB MICROBIOLOGY METHOD 01/15/2025 1:21 PM EDT [facility] HPV Type 16,18, and others Valid LAB MICROBIOLOGY METHOD 01/15/2025 1:21 PM EDT [facility] Brushing/Spatula Cervix uteri structure / Unknown 01/12/2025 01/13/2025 6:08 AM EDT us Josy Brown MD LAB MOLECULAR DIAGNOSTIC S ORDERABLES Final Result [facility] [address] [place] [address], [place] [phone] * (ABNORMAL) HPV with reflex genotype (01/12/2025 12:00 AM EDT) HPV Positive( A) Negative LAB MICROBIOLOGY METHOD 01/13/2025 2:03 PM EDT [facility] Brushing/Spatula Cervix uteri structure / Unknown 01/12/2025 01/13/2025 6:08 AM EDT us Josy Brown MD LAB MOLECULAR DIAGNOSTIC S ORDERABLES Final Result Performing Organization Address [facility]/ZIP Co de Phone Number [facility] [address] [place] [address], [place] [phone] * Chlamydia trachomatis and Neisseria gonorrhoeae molecular study (01/12/2025 12:00 AM EDT) Pathologist [facility] Neisseria gonorrhoeae PCR Negative Negative LAB MOLECULAR DIAGNOSTICS METHOD 01/13/2025 10:41 AM EDT [facility] Chlamydia trachomatis PCR Negative Negative LAB MOLECULAR DIAGNOSTICS METHOD 01/13/2025 10:41 AM EDT [facility] Swab Cervix uteri structure / Unknown 01/12/2025 01/12/2025 2:08 PM EDT us Josy Brown MD LAB MICROBIOLOGY - GENER AL ORDERABLES Final Result [facility] [address] [place] [address], [place] [phone] * Pap smear (01/12/2025 12:00 AM EDT) Pathologist [facility] Interpretation Negative for intraepithelial lesion or malignancy 01/19/2025 5:47 PM EDT [facility] Clinical Information Hpv positive 01/19/2025 5:47 PM EDT [facility] General Categorization Negative 01/19/2025 5:47 PM EDT [facility] LMP 12/15/2024 01/19/2025 5:47 PM EDT [facility] Specimen Adequacy Satisfactory for evaluation, endocervical/dalton sformation zone component present 01/19/2025 5:47 PM EDT [facility] Pap Methodology Liquid Based Pap Test 01/19/2025 5:47 PM EDT [facility] Disclaimer The Pap test is a screening test which carries an inherent false negative rate. These test results should be correlated with the patient's clinical findings and history. This Pap test was processed using an automated screening system. Technical cytopathology services provided by [facility], at [address] [place] [address] (CLIA # [id number]/Marco Barrow MD, Energy Crop Farmer.) 01/19/2025 5:47 PM EDT [facility] Console Pap Interpretation Reported 01/19/2025 5:47 PM EDT [facility] Brushing/Spatula Cervix uteri structure / Unknown 01/12/2025 01/13/2025 6:08 AM EDT us Josy Brown MD LAB CYTOLOGY ORDERABLES Final Result [facility]) [facility] [address] [place] [address], from Last 3 [place] [address] MEDICAID - [facility] [address] [place] [address] Care Teams Mechanical Applications Engineer Relationship Specialty Start Date End Date Antione Traylor MD [address] [place] [id number] PCP - General Internal Medicine 06/06/18
--- OUTSIDE RECORDS SUMMARY | 2025-02-15 11:28 | XMS_ITS | Encounter Summary ---
Author Organization [facility] Address [address] [place] [address] Care Team Providers Care Rehab Nurse Name Role Phone Antione Traylor MD Primary Care Provider Encounter Details Date Type Department Care Team (Latest Contact Info) Description 01/13/2025 Lab Requisition [facility] Lab [address] [facility] [place] [address] Josy Brown MD [address] [facility] [address] [place] [phone] Encounter for gynecological examination (general) (routine) without abnormal findings Social History Tobacco Use Types Packs/Day Years [...] Procedure Name Priority Date/Time Associated Diagnosis Comments HPV GENOTYPE Routine 01/12/2025 12:00 AM EDT Encounter for gynecological examination (general) (routine) without abnormal findings HPV WITH REFLEX GENOTYPE Routine 01/12/2025 12:00 AM EDT Encounter for gynecological examination (general) (routine) without abnormal findings PAP SMEAR Routine 01/12/2025 12:00 AM EDT Encounter for gynecological examination (general) (routine) without abnormal findings documented in this encounter Results * HPV genotype (01/12/2025 12:00 AM EDT) HPV Type 16 Negative Negative LAB MICROBIOLOGY METHOD 01/15/2025 1:[address] [facility] HPV Type 18/45 Negative Negative LAB MICROBIOLOGY METHOD 01/15/2025 1:[address] [facility] HPV Type 16,18, and others Valid LAB MICROBIOLOGY METHOD 01/15/2025 1:[address] [facility] Brushing/Spatula Cervix uteri structure / Unknown 01/12/2025 01/13/2025 6:08 AM EDT us Josy Brown MD LAB MOLECULAR DIAGNOSTIC S ORDERABLES Final Result Performing Organization Address City/[facility]/ZIP Co de Phone Number [facility] [address] [place] [address], [place] [phone] * (ABNORMAL) HPV with reflex genotype (01/12/2025 12:00 AM EDT) HPV Positive( A) Negative LAB MICROBIOLOGY METHOD 01/13/2025 2:[address] [facility] Brushing/Spatula Cervix uteri structure / Unknown 01/12/2025 01/13/2025 6:08 AM EDT us Josy Brown MD LAB MOLECULAR DIAGNOSTIC S ORDERABLES Final Result [facility] [address] [place] [address], [place] [phone] * Pap smear (01/12/2025 12:00 AM EDT) Interpretation Negative for intraepithelial lesion or malignancy 01/19/2025 5:[address] [facility] Clinical Information Hpv positive 01/19/2025 5:[address] [facility] General Categorization Negative 01/19/2025 5:[address] [facility] LMP 12/15/2024 01/19/2025 5:[address] [facility] Specimen Adequacy Satisfactory for evaluation, endocervical/dalton sformation zone component present 01/19/2025 5:[address] [facility] Pap Methodology Liquid Based Pap Test 01/19/2025 5:[address] [facility] Disclaimer The Pap test is a screening test which carries an inherent false negative rate. These test results should be correlated with the patient's clinical findings and history. This Pap test was processed using an automated screening system. Technical cytopathology services provided by [facility], at [address] [place] [address] (CLIA # [id number]/Marco Barrow MD, Coin Machine Supervisor.) 01/19/2025 5:[address] [facility] Console Pap Interpretation Reported 01/19/2025 5:[address] [facility] Brushing/Spatula Cervix uteri structure / Unknown 01/12/2025 01/13/2025 6:08 AM EDT us Josy Brown MD LAB CYTOLOGY ORDERABLES Final Result [facility]) [facility] [address] [place] [address], documented in this encounter Visit Diagnoses Diagnosis Encounter for gynecological examination (general) (routine) without abnormal findings documented in this encounter Care Teams Rehab Nurse Relationship Specialty Start Date End Date Antione Traylor MD [address] [place] [id number] PCP - General Internal Medicine 06/06/18 documented as of this encounter
--- OUTSIDE RECORDS SUMMARY | 2025-02-15 11:28 | XMS_ITS | Encounter Summary ---
Author Organization [employer] Address [address] [facility] [address] [place] [address] Care Team Providers Care Housing Management Officer Name Role Phone Unavailable Primary Care Provider Unavailabl e Encounter Details Date Type Department Care Team (Late st Contact Info) Description 03/11/2023 Telephone [facility] [address] [place] [address] Gabriela Toussaint DDS Social History Tobacco Use [...]
== END 2025-02-15 11:15 | disposition home or self-care (01) ==
LOC: HO.PMC 10:51
PROVIDERS: PCP Physician Assistant; Visit Provider Nurse Practitioner Family
DX: M17.0 Bilateral primary osteoarthritis of knee (principal); M25.561 Pain in right knee; M25.562 Pain in left knee; M54.9 Dorsalgia, unspecified; M51.34 Other intervertebral disc degeneration, thoracic region
CPT/HCPCS: 99214; G2211

== ENCOUNTER → 2025-02-15 10:50 | Outpatient (BNVA) | payer OTHER, SELFPAY | PROVIDERS: PCP Physician Assistant; Visit Provider Nurse Practitioner Family | DX: M54.50 Low back pain, unspecified (principal); M17.0 Bilateral primary osteoarthritis of knee; M25.561 Pain in right knee; M25.562 Pain in left knee; M51.34 Other intervertebral disc degeneration, thoracic region; G89.29 Other chronic pain | CPT/HCPCS: 99212 ==

== ENCOUNTER 2025-03-24 09:08 | Outpatient (AMB) | payer OTHER, SELFPAY ==
--- NOTE | 2025-03-24 09:10 | A.OFFVIS_ITS ---
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 She describes her pains as sharp in nature. 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 She states that both of her knees ?pop? at times. She has had cortisone injections which gave her minimal relief. She has failed the last 3 months of conservative treatment which has included physical therapy exercises, Tylenol, anti-inflammatory medicines and topical creams. She has tried wearing a knee brace which gives her minimal relief. Allergies meperidine (From Demerol) Allergy (Mild, Verified 03/24/25 09:16) Unknown seafood Allergy (Mild, Verified 03/24/25 09:16) Unknown acetaminophen (From Tylenol) Allergy (Unknown, Verified 03/24/25 09:16) Unknown Iodinated Contrast Media Allergy (Unknown, Verified 03/24/25 09:16) Unknown pregabalin (From Lyrica) Allergy (Unknown, Verified 03/24/25 09:16) Unknown tramadol Allergy (Unknown, Verified 03/24/25 09:16) Unknown Medication List - Last Reviewed 03/24/25 by Farheen Bird CCT-A diclofenac sodium 1% (Voltaren Arthritis Pain) 4 grams topical QID ibuprofen 600 mg PO Q8H PRN lorazepam 0.5 mg PO DAILY PRN methadone 15 mg PO Q4-6H PRN PFSH Medical History (Updated 03/24/25 @ 09:33 by Jun Betancourt MD) Leg wound, left Hypocalcemia Hyperlipidemia Therapeutic Varicose veins of legs Urinary incontinence Pre-diabetes Multiple sclerosis History of seizure Disturbance of sleep Cornual Constipation MIKE II (cervical intraepithelial neoplasia II) Chronic vomiting Chronic chest pain Chronic back pain Chronic abdominal pain Cerebral edema Blood pressure elevated without history of HTN Black-out (not amnesia) Asymptomatic bacteriuria Anxiety and depression Alternating constipation and diarrhea Severe depression Costochondritis Chronic low back pain Surgical History (Updated 12/14/24 @ 13:50 by GIBRAN Edge) History of back surgery (09/30/09) Social History Alcohol intake: never Tobacco use type: Cigarette Cigarette Packs Per Day: 1 Current occupational status: unemployed Physical Exam Vital Signs: BMI result Body Mass Index 49.4 Extrem Other: Bilateral knee examination shows minimal effusions, palpable crepitus with range of motion, pain with range of motion Results Reviewed Results Reviewed: X-rays of the patient's bilateral knee show joint space narrowing, subchondral sclerosis, no acute bony abnormalities Assessment & Plan Assessment & Plan (1) Obesity, morbid, BMI 40.0-49.9: Code(s): E66.01 - Morbid (severe) obesity due to excess calories Category: Medical (2) Obesity, morbid, BMI 40.0-49.9: Code(s): E66.01 - Morbid (severe) obesity due to excess calories Category: Medical (3) Bilateral primary osteoarthritis of knee: Code(s): M17.0 - Bilateral primary osteoarthritis of knee Category: Medical Plan Ms. Palacio presents with bilateral knee pains due to osteoarthritis. I had a lengthy discussion with the patient regarding the treatment options. I did put in referrals to physical therapy and the weight loss clinic as per the patient's request. The patient would not be a candidate for total knee replacement surgery until her BMI is less than 40. I will see if her insurance company will cover a viscosupplementation injection, such as Durolane, for both of her knees. I will see her back once the injections are available. Feel free to call me at any time should questions regarding her orthopedic management arise. I spent 21 minutes in reviewing the patient's records and imaging studies, seeing the patient and documenting in the medical record. Orders: Orders PT Evaluation and Treatment Today E66.01 - Morbid (severe) obesity due to excess calories, M17.0 - Bilateral primary osteoarthritis of knee Referrals Medical Weight Management Referral E66.01 - Morbid (severe) obesity due to excess calories Coding Level of Care Code New Pt Level 3 (68134) Complex EM visit Add On G2211 Diagnoses Obesity, morbid, BMI 40.0-49.9 E66.01 Bilateral primary osteoarthritis of knee M17.0
[2025-03-24 09:11] VITALS: BMI 49.4
--- OUTSIDE RECORDS SUMMARY | 2025-03-24 09:57 | XMS_ITS | Clinical Summary ---
Author Organization [employer] Address [address] [place] [address] Care Team Providers Care Radial Drill Operator Name Role Phone Unavailable Primary Care Provider [...] NEEDED FOR PAIN 06/27/2022 Active nystatin (Mycostatin) 852699 UNIT/ML suspension Take 4 to 6ml and [...] 1985 Lipid Panel 1985 SDOH Screening 1985 Disability Screening 1985 Alcohol/Substance Use Screening 1997 Family Planning (PISQ) 2000 Hepatitis C Screening 2003 DTaP/Tdap/Td Vaccines (1 - Tdap) 2004 Hepatitis B Vaccines (1 of 3 - 19+ 3-dose series) 2004 Pap Smear 2006 Cervical Cancer Screening 2015 HPV/Cotest 2015 COVID-19 Vaccine ( - 2023-2 5 season) 2024 Tobacco Screening 01/16/2025 01/17/2024 Influenza Vaccine (Season Ended) 2025 Zoster Vaccines (1 of 2) 2035 RSV [...] Years) and At-Risk Patients (6 to 49) Years Aged Out No longer eligi ble based on patient's age to complete this topic RSV under 20 months Aged Out No longe r eligible based on patient's age to complete this topic Rotavirus Vaccines Aged Out No longer eligible based on patient's age to complete this topic Insurance [employer] STAND ADULT
== END 2025-03-24 09:28 | disposition home or self-care (01) ==
LOC: HO.HOS 09:09
PROVIDERS: PCP Physician Assistant; Visit Provider Orthopaedic Surgery
DX: E66.01 Morbid (severe) obesity due to excess calories (principal); M17.0 Bilateral primary osteoarthritis of knee
CPT/HCPCS: 99203; G2211

== ENCOUNTER → 2025-03-24 09:08 | Outpatient (BNVA) | payer OTHER, SELFPAY | PROVIDERS: PCP Physician Assistant; Visit Provider Orthopaedic Surgery | DX: M17.0 Bilateral primary osteoarthritis of knee (principal); E66.01 Morbid (severe) obesity due to excess calories | CPT/HCPCS: 99202 ==

== ENCOUNTER → 2025-03-31 10:34 | Outpatient (BNV) | payer OTHER, SELFPAY | PROVIDERS: Visit Provider Radiology Diagnostic Radiology | DX: M54.50 Low back pain, unspecified (principal); R32 Unspecified urinary incontinence; R15.9 Full incontinence of feces; M54.6 Pain in thoracic spine; R53.1 Weakness | CPT/HCPCS: 72157; 72158 ==

== ENCOUNTER 2025-03-31 10:42 | Outpatient (REF) | payer OTHER, SELFPAY ==
--- NOTE | ~2025-03-31 | MR_ITS ---
EXAMINATION: MR LUMBAR SPINE WITHOUT AND WITH CONTRAST CLINICAL INFORMATION: Low back pain. Urinary and rectal incontinence. COMPARISON: None available. TECHNIQUE: MRI of the lumbar spine was obtained using routine sequences with and without contrast. Intravenous contrast: (Gadavist) 10.0 mL. No reported immediate complications. FINDINGS: Last rib-bearing vertebra labeled T12. No bone marrow STIR signal abnormality. Normal alignment. No abnormal enhancement within the leptomeninges, neural elements or the prevertebral compartment. Conus medullaris ends at superior endplate of L1 with normal signal. No elements of the filum terminalis and thecal sac demonstrated no signal abnormality or abnormal enhancement. No grouping or clumping. T12-L1: No disc herniation. No neuroforamina stenosis. L1-2: No disc herniation. No neuroforamina stenosis. L2-3: Broad-based disc bulging. No compression upon neural elements. L3-4: Broad-based disc bulging. Facet joint hypertrophy. Trace of facet effusion. No compression upon neural elements. L4-5: Broad-based disc bulging. Facet joint hypertrophy. Bilateral neuroforamina narrowing. Decreased AP diameter of the thecal sac. L5-S1: Broad-based disc bulging. Facet joint hypertrophy and facet effusion. Reduced AP diameter of the thecal sac. Bilateral neuroforamina narrowing. No prevertebral compartment hematoma, mass or fluid collections. MR/MR lumbar spine wo/w con IMPRESSION: No abnormal enhancement. No acute fracture or listhesis. Mild multilevel lumbar spondylosis more pronounced at L4-5 and L5-S1. No disc herniation. Electronically signed by: Ghassan Baeza MD 03/31/2025 02:33 PM EDT
--- NOTE | ~2025-03-31 | MR_ITS ---
EXAM: MRI thoracic spine without and with IV contrast. IV contrast: 10 mL Gadavist TECHNIQUE: Multiplanar multisequence imaging of the thoracic spine was performed from the C7-L1 without contrast. INDICATION: Chronic back pains, daily falls, lower extremity weakness, numbness, pain, incontinence,G96.198 - Other disorders of meninges, not elsewhere classified PRIOR: None FINDINGS: Moderate motion artifact is present in the upper thoracic spine. Marrow and end-plates: There are no marrow replacing lesions. Alignment: Vertebral body height and alignment is preserved. Soft tissues: Paraspinal soft tissues and major vascular structures are unremarkable. Metal artifact is seen posterior to facets between T4-T7 Cord: There is no abnormal cord signal. There is no hydrosyringomyelia. The termination of conus medullaris is within normal limits at the level of L1. T8-9 and T9-10: Left central disc bulge indents thecal sac without causing spinal stenosis. Thoracic disc levels not specifically described demonstrated no disc bulge, herniation, spinal stenosis, or foraminal narrowing. With contrast, there is physiologic enhancement without abnormality. MR/MR thoracic spine wo/w con IMPRESSION: No mass or other abnormality. Electronically signed by: Deshaun Camp MD 03/31/2025 02:08 PM EDT
--- OUTSIDE RECORDS SUMMARY | 2025-03-31 11:23 | XMS_ITS | Patient Health Record ---
Author Organization [facility] Address [address] [place] [address] Care Team Providers Care Distresser Name Role Phone Janette Chrissy Primary Care Provider Pantera Xavier Unavailable [phone] Allergies Allergen (clinical drug ingredient) Drug/Non Drug Allergy documented on EMR Reaction Allergy Type Onset Date Status meperidine Demerol Unknown Drug Allergy Active pregabalin Lyrica Unknown Drug Allergy Active acetaminophen Tylenol Unknown Drug Allergy Act prashant Iodinated contrast media (substance) Iodinated Diagnostic Agents Unknown Drug Allergy Active tramadol Tramadol Unknown Drug Allergy Active Reason For Referral No Information Medications Medication SIG (Take, Route, Frequency, Duration) Notes Start Date End Date Status Ondansetron 4 MG 1 tablet on the tong ue and allow to dissolve Orally Once a day Active Pantoprazole Sodium 20 MG 1 tablet 1/2 t o 1 hour before morning meal Orally Once a day Active Dicyclomine HCl 20 MG 1 tablet Orally Th ree times a day Unknown Famotidine 20 MG 1 tablet at bedtime as needed Orally Once a day Unknown ARIPiprazole 5 MG 1 tablet Orally Once a day Not-Taking Banophen 50 MG 1 capsule at bedtime as needed Orally Once a day Not-Taking Carafate 1 GM 1 tablet on an empty stomach Orally Twice a day Active clonazePAM 0.5 MG 1 tablet Orally Once a day Active Colchicine 0.6 MG 1 tablet Orally Not-Taking Methadone HCl Active Problems Problem Type SNOMED Code ICD Code Onset Dates Problem Status W/U Status Risk Notes Problem Hyperlipidemia (45498810) Hyperlipidemia, unspecified (E78.5) Active confirmed Problem Cerebral edema () Cerebral edema (G93.6) Active confirmed Problem Essential hypertension (27836557) Essential (primary) hypertension (I10) Active confirmed Problem Skin ulcer of calf (334360157) 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) Active confirmed Problem Chronic ulcer of skin (24519026) Non-pressure chronic ulcer of skin of other sites with fat layer exposed (L98.492) Active confirmed Problem Moderate cervical dysplasia (221352253) Moderate cervical dysplasia (N87.1) Active confirmed Problem Urinary incontinence (157412184) Urinary incontinence in female (R32) Active confirmed Vital Signs Heart Rate 89 /min 02/23/2025 Temperature 98.4 degrees Fahrenheit 02/23/2025 Respiratory Rate 16 /min 02/23/2025 Height-cm 162.56 cm 02/23/2025 Oximetry 95 % 02/23/2025 Blood pressure diastolic 70 mm Hg 02/23/2025 Weight-kg 121.11 kg 02/23/2025 Height 64 in 02/23/2025 Blood pressure systolic 122 mm Hg 02/23/2025 Weight 267 lbs 02/23/2025 BMI 45.83 kg/m2 02/23/2025 Encounters Encounter Location Date Provider Diagnosis [facility] [address] [address] 11/26/2024 Pantera Maurer Hyperlipidemia, unspecified E78.5 ; 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 without evidence of necrosis L97.225 and Essential (primary) hypertension I10 [facility] [address] [address] 02/23/2025 Pantera Maurer Non-pressure chronic ulcer of skin of other sites with fat layer exposed L98.492 ; Hyperlipidemia, unspecified E78.5 and Essential (primary) hypertension I10 [facility] [address] [address] 11/24/2024 Pantera Maurer [facility] [address] [place] [address] 11/26/2024 Pantera Maurer [facility] [address] [address] 12/10/2024 Pantera Maurer [facility] [address] [place] [address] 02/23/2025 Pantera Maurer [facility] [address] [address] 03/25/2025 Pantera Maurer Assessments Encounter Date Diagnosis (ICD Code) Assessment Notes Treatment Notes Treatment Clinical Notes Section Notes 11/26/2024 Hyperlipidemia, unspecified (ICD-10 - E78.5) 11/26/2024 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 without evidence of necrosis (ICD-10 - L97.225) 02/23/2025 Non-pressure chronic ulcer of skin of other sites with fat layer exposed (ICD-10 - L98.492) 02/23/2025 Hyperlipidemia, unspecified (ICD-10 - E78.5) 02/23/2025 Essential (primary) hypertension (ICD-10 - I10) 11/26/2024 Essential (primary) hypertension (ICD-10 - I10) 12/10/2024 Other J 11/26/2024 Nav Zafar is a 41-[id number]-jjl-female that presents today for initial evaluation and treatment of chronic ulcers to lower extremity. Reports wounds occur and resolve and are painfull abscess that open up. She has had current wound for 6-8 months. No other acute concerns at todays visit. Past medical history is significant for HTN, [...] a walking boot to the left foot. On assessment today, Charisma is noted to be afebrile and other VS were within normal limits. The patient denies pain or discomfort related to wound. We removed dressings, with no suggestive s/s of an underlying infectious process. There was no foul odor noted. Wound noted to: left lower caldwell ulcer. The wound bed is noted with scant slough and some granulation and callus/ fibrinous wound edges. There are significant resolved ulcers surround wound and over entire body that are circular in appears and consistent with hidradentis suppruativa Patients lower extremities are noted with: Hair loss, thin shiny skin, varicosisties extensivly over Bilateral lower legs After examination, I discussed the indication of debridement and they were agreeable. I then performed debridement to remove devitalized tissues as outlined. She tolerated procedure well. The wound site were then cleansed with saline and thereafter, we applied Aquacel AG,onto the wound sites and zinc to kathi wound areas. The sites were then covered with a dry dressing. Patient was educated on elevating their legs and protect wound site continue to reposition and off load. Visiting nurses are performing dressing changes regularly needs JONATAN done for arterial to ensure good blood flow S/S of infection reviewed and when to go to ED Patient will have FU in one week Patient educated on importance of glycemic control and impact on wound healing. Reviewed poorly managed hyperglycemia and chronic systemic changes will cause significant delays in wound healing. Optimal DM control-goal for A1c to be less than 8% and/or average blood glucose to be less than 200mg/dl to support healing. Follow up with plant hr manager for optimal glycemic control and wound healing outcomes Patients lower extremities are noted with: Hair loss, thin shiny skin, pallor or ashen tone, ridging of nails, on elevation of extremities reveals pallor foot and when placed dependent foot becomes rubor. They are noted with Weak-absent pedal pulses Patient education that Peripheral artery disease is a condition that affects the blood vessels that bring blood to the legs. Reviewed symptoms that can occur including but not limited to: muscle pain that gets worse with activity and better with rest claudication. They effect on wound healing is slower. Reviewed risk factors associated with peripheral artery disease including but not limited to: pre-diabetes, hyperlipidemia, high cholesterol, high blood pressure Reviewed past medical records, labs, hospitalizations, performed a complete wound assessment to assist in the identification of underlying cause of the wound to individualize treatment plan going forward. Will obtain consultations as indicated from different disciplines if not already involved with current care, including but not limited to: vascular intervention, endocrine, diabetic and nutrition education, infectious disease, dermatology, surgery. Will continue to review and assess interventions including but not limited to orthotics, and compression therapy, JONATAN, labs, and cultures. Documentation will be provided to primary physicians or referring physicians to keep them informed of patients' progress. Due to the many factors that impact the healing of wounds, including but not limited to endocrine disorder, autoimmune disorders, Diabetes, weight gain, cardiovascular disease, poor circulation, and medications, and more not listed, and the role they play on the delay in wound healing, all referrals will be made promptly as well as discussed with patient prior too. We reviewed the importance of multidisciplinary team to maximize wound outcomes.Patient verbalized understand and denies questions or concerns at this time A total of 40 minutes was spent on this visit (face to face and non face to face) documenting HPI and performing physical exam, reviewing previous notes and testing, reviewing and adjusting treatment plan, counseling the patient on treatment choices, disease process, expected outcomes, and documenting the findings in the note. I, Pantera Maurer, MSN, PHARMACY INFORMATICIST, WATCH COMMANDER-C, examined, evaluated, and treated the patient. Dr. Ben Esteves was available for any questions or concerns that I may have had. I, Dom Esteves MD confirm that Pantera Maurer, MSN, PHARMACY INFORMATICIST, WATCH COMMANDER-C understands and adheres to the guidelines of the established clinical protocols in the office. I confirm the above care provided was rendered under my general supervision as initially planned and subsequently discussed and supervised by me. 02/23/2025 Nav Zafar is a 44-npls-ftf-female, and is a returning patient that first presented [facility] for ulcer of let leg. She had a referral for vascular and [facility], however she never came back to [facility] after her initial appointment and reported being sick and did not FU with vascular or Derm. Today she presents for evaluation and treatment of chronic ulcer to left anterior lower extremity. She wears a walking boot to the left foot. Past medical history is significant for HTN, HLD, morbid obesity, multiple sclerosis, varicose veins, cerebral edema, chronic pain of abdomen/chest/back, Previously at her last visit on 11/26/24 The patient reports she first went to ortho about left foot, and ortho referred her to vascular and her appointment was on 11/12/24. However, she had to cancel vascular appointment due to illness. She was prescribed Doxycycline x 10days. On assessment today, Charisma is noted to be afebrile and other VS were within normal limits. The patient denies pain or discomfort related to wound. We removed dressings, with no suggestive s/s of an underlying infectious process. There was no foul odor noted. Wound noted to: chronic ulcer to left anterior lower extremity: Surrounding dermatitis with venous stasis ulcer. The periwound skin is eczematous, presenting with erythema, scaling, weeping, induration, and crusting. These contribute to intense pruritus in the region. This is venous in nature. The wound bed has slough overlying and periwound is attached with fibernous edge After examination, I discussed the indication of debridement and they were agreeable. I then performed debridement to remove devitalized tissues as outlined. She tolerated procedure well. The wound site were then cleansed with saline and thereafter, we applied HFB ready onto the wound sites and zinc to kathi wound areas. The sites were then covered with a dry dressing. Patient was educated on elevating their legs and protect wound site need JONATAN done next appointment, office reaching out to find all her providers and try to get recordsS/S of infection reviewed and when to go to EDPatient will have FU in one week A total of 45 minutes was spent on this visit (face to face and non face to face) documenting HPI and performing physical exam, reviewing previous notes and testing, reviewing and adjusting treatment plan, counseling the patient on treatment choices, disease process, expected outcomes, and documenting the findings in the note. I, Pantera Maurer, MSN, PHARMACY INFORMATICIST, WATCH COMMANDER-C, examined, evaluated, and treated the patient. Dr. Ben Esteves was available for any questions or concerns that I may have had. educated on elevating the legs above heart level for 30 minutes three or four times per day can reduce swelling and improve blood flow in the veins. Improving blood flow can speed healing of venous ulcers. However, it may not be practical for some people to elevate their legs several times per day. To be effective, it is important to elevate the legs above the level of the heart educated that common problems reported at the end of the day include but are not limited to legs feel heavy, tired, or achy and of correlate after standing for long periods. The feet and ankles may also become swollen. - Dom Baldwin MD confirm that Pantera Maurer, MSN, PHARMACY INFORMATICIST, WATCH COMMANDER-C understands and adheres to the guidelines of the established clinical protocols in the office. I confirm the above care provided was rendered under my general supervision as initially planned and subsequently discussed and supervised by me. Plan Of Treatment No Information Insurance Providers Payer Name Payer Address Payer Phone Subscriber Number Group Number Insured Name Patient Relationship to Insured Coverage Start Date Coverage End Date [facility] [id number] [place] [phone] [id number] Charisma Palacio Self - patient is the insured 4 Medical (General) History Medical History History ICD Code Anxiety disorder F41.9 Depression F32.A Bacteriuria R82.71 Cerebral edema G93.6 Chronic pain syndrome G89.4 Moderate cervical dysplasia N87.1 Seizures R56.9 Morbid (severe) obesity due to excess ca lories E66.01 Multiple sclerosis G35 Prediabetes R73.03 Urinary incontinence in female R32 Varicose vein of leg I83.90 Non-pressure chronic ulcer o f left calf with muscle involvement without evidence of necrosis L97.225 Surgical History Surgery Date(Month/Year) vertebral corpectomy cone biopsy of uterine cervix Knee surgery Right Hernia repair Gall bladder surgery Uterine mass Aspiration of spinal cyst
--- OUTSIDE RECORDS SUMMARY | 2025-03-31 11:23 | XMS_ITS ---
Author Name [facility] Organization Unknown Encounters Encounter Type Encounter Reason Primary Diagnosis Location Date Ambulatory [facility] [place] 10/13/2024
--- OUTSIDE RECORDS SUMMARY | 2025-03-31 11:23 | XMS_ITS | Clinical Summary ---
Author Organization [address] [facility] Address [address] [place] [address] Phone Care Team Providers Care Supervisor Seaming Name Role Phone Antione Traylor MD Primary Care Provider [phone] Encounters Date Type Department Care Team Description 01/13/2025 Lab Requisition [facility] [address] [place] [address] Josy Brown MD Encounter for gynecological examination (general) (routine) without abnormal findings 01/12/2025 Lab Requisition [facility] [address] [place] [address] Josy Brown MD Encounter for screening for infections with a predominantly sexual mode of transmission from Last 3 Months Surgical History Surgery Date Site/Laterality Comments CERVICAL BIOPSY W/ LOOP ELECTRODE EXCISION PROCEDURE: AR CONIZATION CERVIX W/WO D&C RPR ELTRD EXC KNEE SURGERY PROCEDURE: HISTORICAL KNEE SURGERY TONSILLECTOMY PROCEDURE: HISTORICAL TONSILLECTOMY OTHER SURGICAL HISTORY PROCEDURE: AR EXPL RETROPERITONEUM W/WO BX SPX BACK SURGERY [...] 2023-2 5 season) 2024 Influenza Vaccine (#1) 2025 Cervical Cancer Screening: HPV 01/12/2030 0 [...] LAB CHEMISTRY METHOD 01/13/2025 11:37 AM EDT [facility] ([facility] Blood Venous blood specimen / Unknown Venipuncture / Unknown 01/12/2025 10:48 AM EDT 01/12/2025 12:07 PM EDT Josy Brown MD LAB BLOOD ORDERABLES Fin al Result Performing Organization Address City/[facility]/ZIP Co de Phone Number [facility] [address] [place] [address], [place] [phone] * (ABNORMAL) Testosterone free, bioavailable and total (01/12/2025 10:48 AM EDT) [facility] Signature Testosterone 15 9 - 48 ng/dL LAB CHEMISTRY METHOD 01/12/2025 4:42 PM EDT [facility] Testosterone, Free 0.7(H) 0.0 - 0.5 ng/dL LAB CHEMISTRY METHOD 01/12/2025 4:42 PM EDT [facility] Testosterone, Bioavailable 14(H) 1 - 9 ng/dL LAB CHEMISTRY METHOD 01/12/2025 4:42 PM EDT [facility] Sex Hormone Binding 2.8 See Comment nmol/L LAB CHEMISTRY METHOD 01/12/2025 4:42 PM EDT [facility] Comment: FEMALES: pre-menopausal 10.8 - >180 post-menopausal 23.2 - 159.1 MALES: 21-49 years 14.6 - 94.6 50-89 years 21.6 - 113.1 CHILDREN: No established reference range Over the counter supplements containing high doses of biotin may interfere with this assay. If interference is suspected, patients should be retested after refraining from biotin supplements for 72 hours. Albumin 3.7 3.2 - 5.0 g/dL LAB CHEMISTRY METHOD 01/12/2025 4:42 PM EDT [facility] Blood Venous blood specimen / Unknown Venipuncture / Unknown 01/12/2025 10:48 AM EDT 01/12/2025 12:07 PM EDT Josy Brown MD LAB BLOOD ORDERABLES Fin al Result Performing Organization Address City/[facility]/ZIP Co de Phone Number [facility] [address] [place] [address], [place] [phone] * Sex hormone binding globulin (01/12/2025 10:48 AM EDT) Sex Hormone Binding 2.8 See Comment nmol/L LAB CHEMISTRY METHOD 01/12/2025 4:42 PM EDT [facility] Comment: FEMALES: pre-menopausal 10.8 - >180 post-menopausal 23.2 - 159.1 MALES: 21-49 years 14.6 - 94.6 50-89 years 21.6 - 113.1 CHILDREN: No established reference range Over the counter supplements containing high doses of biotin may interfere with this assay. If interference is suspected, patients should be retested after refraining from biotin supplements for 72 hours. Blood Venous blood specimen / Unknown Venipuncture / Unknown 01/12/2025 10:48 AM EDT 01/12/2025 12:07 PM EDT us Josy Brown MD LAB BLOOD ORDERABLES Fin al Result Performing Organization Address City/[facility]/ZIP Co de Phone Number [facility] [address] [place] [address], [place] [phone] * Prolactin (01/12/2025 10:48 AM EDT) [facility] Prolactin 4.00 See Comment ng/mL LAB CHEMISTRY METHOD 01/12/2025 1:23 PM EDT [facility] Comment: Prolactin Reference Ranges (ng/mL) Non 2.2 - 30.3 8.1 - 347.6 Postmenopausal 0.7 - 31.5 Blood Venous blood specimen / Unknown Venipuncture / Unknown 01/12/2025 10:48 AM EDT 01/12/2025 12:07 PM EDT us Josy Brown MD LAB BLOOD ORDERABLES Fin al Result Performing Organization Address City/[facility]/ZIP Co de Phone Number [facility] [address] [place] [address], * Progesterone (01/12/2025 10:48 AM EDT) Progesterone 0.5 ng/mL LAB CHEMISTRY METHOD 01/12/2025 1:23 PM EDT [facility] Comment: PROGESTERONE REFERENCE RANGES (NG/ML) FEMALES NORMALLY MENSTRUATING: FOLLICULAR PHASE 0.2 - 1.7 MIDCYCLE PEAK 2.3 - 242 LUTEAL PHASE 8.8 - 21.6 POSTMENOPAUSAL <0.2 - 0.9 : FIRST TRIMESTER 11.4 - 41.0 SECOND TRIMESTER 13.5 - 156 THIRD TRIMESTER 51.4 - >200 This assay should not be used in patients taking DHEA supplements as part of IVF treatment. A metabolite (DHEA-S) of this supplement has been shown to cross-react with the progesterone assay and cause falsely elevated results. Blood Venous blood specimen / Unknown Venipuncture / Unknown 01/12/2025 10:48 AM EDT 01/12/2025 12:07 PM EDT us Josy Brown MD LAB BLOOD ORDERABLES Fin al Result [facility] [address] [place] [address], * Estradiol (01/12/2025 10:48 AM EDT) Estradiol 40 See below pcg/mL LAB CHEMISTRY METHOD 01/12/2025 1:23 PM EDT [facility] Comment: ESTRADIOL REFERENCE RANGES (PG/ML) FEMALES NORMALLY MENSTRUATING: FOLLICULAR PHASE 21.4 - 164.8 MIDCYCLE PEAK 49.9 - 367.2 LUTEAL PHASE 40.2 - 259.0 POSTMENOPAUSAL: ON HRT <11 - 462.1 UNTREATED <11 - 58.3 Fulvestrant has been shown to cross-react with the estradiol assay and cause falsely elevated results. For patients being treated with fulvestrant, Estradiol ultrasensitive should be ordered. This test is performed by LC/MS and is not expected to show cross reactivity to fulvestrant. Blood Venous blood specimen / Unknown Venipuncture / Unknown 01/12/2025 10:48 AM EDT 01/12/2025 12:07 PM EDT us Josy Brown MD LAB BLOOD ORDERABLES Fin al Result Performing Organization Address [facility]/ZIP Co de Phone Number [facility] [address] [place] [address], [place] [phone] * Luteinizing hormone (01/12/2025 10:48 AM EDT) Luteinizing Hormone 6.0 See Comment mIU/mL LAB CHEMISTRY METHOD 01/12/2025 1:23 PM EDT [facility] Blood Venous blood specimen / Unknown Venipuncture / Unknown 01/12/2025 10:48 AM EDT 01/12/2025 12:07 PM EDT Narrative [facility] - 01/12/2025 1:23 PM EDT LH REFERENCE RANGES (MIU/ML) FEMALES NORMALLY MENSTRUATING: FOLLICULAR PHASE 1.9 - 12.8 MIDCYCLE PEAK 22.8 - 76.1 LUTEAL PHASE 0.6 - 13.5 POSTMENOPAUSAL: ON HRT 1.1 - 52.4 UNTREATED 8.6 - 61.8 us Josy Brown MD LAB BLOOD ORDERABLES Fin al Result Performing Organization Address City/[facility]/ZIP Co de Phone Number [facility] [address] [place] [address], [place] [phone] * Follicle stimulating hormone (01/12/2025 10:48 AM EDT) Follicle Stimulating Hormone 9.1 See Comment mIU/mL LAB CHEMISTRY METHOD 01/12/2025 2:17 PM EDT [facility] Comment: FSH REFERENCE RANGES (MIU/ML) FEMALES NORMALLY MENSTRUATING: FOLLICULAR PHASE 2.3 - 12.6 MIDCYCLE PEAK 5.2 - 17.5 LUTEAL PHASE 1.7 - 9.5 POSTMENOPAUSAL: ON HRT 5.9 - 72.8 UNTREATED 12.7 - 132.2 Blood Venous blood specimen / Unknown Venipuncture / Unknown 01/12/2025 10:48 AM EDT 01/12/2025 12:07 PM EDT us Josy Brown MD LAB BLOOD ORDERABLES Fin al Result Performing Organization Address [facility]/ZIP Co de Phone Number [facility] [address] [place] [address], [place] [phone] * HPV genotype (01/12/2025 12:00 AM EDT) HPV Type 16 Negative Negative LAB MICROBIOLOGY METHOD 01/15/2025 1:21 PM EDT [facility] HPV Type 18/45 Negative Negative LAB MICROBIOLOGY METHOD 01/15/2025 1:21 PM EDT [facility] HPV Type 16,18, and others Valid LAB MICROBIOLOGY METHOD 01/15/2025 1:21 PM EDT [facility] Brushing/Spatula Cervix uteri structure / Unknown 01/12/2025 01/13/2025 6:08 AM EDT us Josy Brown MD LAB MOLECULAR DIAGNOSTIC S ORDERABLES Final Result Performing Organization Address [facility]/ZIP Co de Phone Number [facility] [address] [place] [address], * (ABNORMAL) HPV with reflex genotype (01/12/2025 12:00 AM EDT) HPV Positive( A) Negative LAB MICROBIOLOGY METHOD 01/13/2025 2:03 PM EDT [facility] Brushing/Spatula Cervix uteri structure / Unknown 01/12/2025 01/13/2025 6:08 AM EDT us Josy Brown MD LAB MOLECULAR DIAGNOSTIC S ORDERABLES Final Result [facility] [address] [place] [address], [place] [phone] * Chlamydia trachomatis and Neisseria gonorrhoeae molecular study (01/12/2025 12:00 AM EDT) Neisseria gonorrhoeae PCR Negative Negative LAB MOLECULAR DIAGNOSTICS METHOD 01/13/2025 10:41 AM EDT [facility] Chlamydia trachomatis PCR Negative Negative LAB MOLECULAR DIAGNOSTICS METHOD 01/13/2025 10:41 AM EDT [facility] Swab Cervix uteri structure / Unknown 01/12/2025 01/12/2025 2:08 PM EDT Josy Brown MD LAB MICROBIOLOGY - GENER AL ORDERABLES Final Result Performing Organization Address City/[facility]/ZIP Co de Phone Number [facility] [address] [place] [address], [place] [phone] * Pap smear (01/12/2025 12:00 AM EDT) Interpretation Negative for intraepithelial lesion or malignancy 01/19/2025 5:47 PM EDT [facility] Clinical Information Hpv positive 01/19/2025 5:47 PM EDT [facility] General Categorization Negative 01/19/2025 5:47 PM EDT [facility] LMP 12/15/2024 01/19/2025 5:47 PM EDT [facility] Specimen Adequacy Satisfactory for evaluation, endocervical/dalton sformation zone component present 01/19/2025 5:47 PM EDT [facility] Pap Methodology Liquid Based Pap Test 01/19/2025 5:47 PM EDT [facility] Disclaimer The Pap test is a screening test which carries an inherent false negative rate. These test results should be correlated with the patient's clinical findings and history. This Pap test was processed using an automated screening system. Technical cytopathology services provided by [facility], at [address] [place] [address] (CLIA # [id number]/Marco Barrow MD, Sports Medicine Specialist.) 01/19/2025 5:47 PM EDT [facility] Console Pap Interpretation Reported 01/19/2025 5:47 PM EDT [facility] Brushing/Spatula Cervix uteri structure / Unknown 01/12/2025 01/13/2025 6:08 AM EDT us Josy Brown MD LAB CYTOLOGY ORDERABLES Final Result [facility]) [facility] [address] [place] [address], from Last 3 Months Insurance MEDICAID - [place] [facility] Care Teams Supervisor Seaming Relationship Specialty Start Date End Date Antione Traylor MD [address] [place], [place] [address]SUDHA [id number] PCP - General Internal Medicine 06/06/18
--- OUTSIDE RECORDS SUMMARY | 2025-03-31 11:23 | XMS_ITS | Clinical Summary ---
Author Organization [employer] Address [address] [place] [address] Care Team Providers Care Tennis Director Name Role Phone Unavailable Primary Care Provider [...] NEEDED FOR PAIN 06/27/2022 Active nystatin (Mycostatin) 985691 UNIT/ML suspension Take 4 to 6ml and [...] patient's age to complete this topic [facility] AD[facility]
== END 2025-03-31 10:43 | disposition home or self-care (01) ==
LOC: HO.MRI 10:42
PROVIDERS: Visit Provider Nurse Practitioner Family
DX: M54.50 Low back pain, unspecified (principal); G89.29 Other chronic pain; M54.9 Dorsalgia, unspecified; G96.198 Other disorders of meninges, not elsewhere classified; M51.34 Other intervertebral disc degeneration, thoracic region
CPT/HCPCS: 72157; 72158; A9585

== ENCOUNTER 2025-04-08 09:07 | Outpatient (REF) | payer OTHER, SELFPAY | END 2025-04-08 09:08 | disposition home or self-care (01) | LOC: HO.LNP 09:07 | PROVIDERS: PCP Physician Assistant; Visit Provider Nurse Practitioner Family | DX: R31.9 Hematuria, unspecified (principal); Z13.9 Encounter for screening, unspecified; R32 Unspecified urinary incontinence | CPT/HCPCS: 51798; 81003; 88112; 99202 ==

== ENCOUNTER 2025-04-08 09:07 | Outpatient (AMB) | payer OTHER, SELFPAY ==
--- OUTSIDE RECORDS SUMMARY | 2025-01-18 06:30 | XMS_ITS | Continuity of Care Document ---
Author Organization [facility] Address [address] [place] [address] Phone Care Team Providers Care Interior Design Professor Name Role Phone Agusot KEYS, RVT, EDMAR, Jacob Unavailable U navailable Allergies, Adverse Reactions, Alerts Substance Reaction Status Criticality tramadol Active No Information MEPERIDINE HCL Active No Informatio n Procedures Procedure Date Office/Outpt E&M Established 15 Mins- CT & [place] Duplex Scan-extrem Veins; Comp- CT & [place] Offic/outpt E&m Estab 5 Min Trial- Telem edicine CT & [place] Offic/outpt E&m Estab 5 Min Trial - Tele medicine Office/Oupt E&M New Pt 45 Mins Duplex Scan-extrem Veins; Comp Advance Directives Directive Yes / No Effective Date File Name No Information Encounters Encounter Description Practice Location Reason(s) For Visit Diagnoses Date Provider Providers Copied on Encounter Office/Outpt E&M Established 15 Mins- CT & [place] [facility], [address], [id number], [place] tel:[phone] [facility] [place] [facility] [place] Pain in left legChest pain, unspecifiedCr amp and spasmLocalize d edemaChronic venous hypertension (idiopathic) without complications of bilateral lower extremityType 2 diabetes mellitus without complications Restless legs syndromePruri tus, unspecifiedDi sorder of pigmentation, unspecifiedPa in in right leg Dec- 5 Agusto KEYS, ARYAT, RPLASHAWN James. [address] [place] [address], [place], [id number], [place]. tel:[phone] [facility], [address] [place] [address] [address], [id number], [place] tel:[phone] CVR - [facility] Varicose veins of bilateral lower extremities with pain Dec- 5 Agusto KEYS RVT, EDMAR James. [address] [place] [address], [place] [address], [facility] [place], [id number], [place]. tel:[phone] Referring Provider: Jacob Liz MD, MARITZA, EDMAR, [address] [place] [address], [facility] [place], [address] . tel:[phone] [facility], [address] [place] [address] [address] [place], [id number], [place] tel:[phone] [facility] [place] [facility] [place] No Information 4 Agusto KEYS RVT, EDMAR James. [address] [place] [address], [place], [id number], [place]. tel:[phone] Offic/outpt E&m Estab 5 Min Trial- Telemedicine CT & [place] [facility], [address] [place] [address] [address], [id number], [place] tel:[phone] CVR - [facility] Varicose veins of right lower extremity with inflammationV aricose veins of left lower extremity with inflammationL ocalized edemaPruritus , unspecifiedDi sorder of pigmentation, unspecifiedCh est pain, unspecified Dec-0 4 Carlos Gonzales. [facility], [address], [place], [id number], [place]. tel:[phone] Offic/outpt E&m Estab 5 Min Trial - Telemedicine [facility] [place] GUEVARA, [address] [place] [address] [address] [place], [id number], [place] tel:[phone] [place] Varicose veins of right lower extremity with inflammationV aricose veins of left lower extremity with inflammationL ocalized edemaPruritus , unspecifiedDi sorder of pigmentation, unspecifiedFl ail joint, unspecified jointChest pain, unspecified Brando-0 4 Carlos Gonzales. [address] [place] [address], [place], [id number], [place]. tel:[phone] Office/Oupt E&M New Pt 45 Mins [facility], [address] [place] [address] [facility] [address], [place], [id number], [place] tel:[phone] [facility] Varicose veins of right lower extremity with inflammationV aricose veins of left lower extremity with inflammationP ain in right lower legPain in left lower legPruritus, unspecifiedDi sorder of pigmentation, unspecifiedFl ail joint, unspecified jointPain in right legPain in left legChest pain, unspecifiedLo calized edema 3 Panda KEYS FACS T [facility] Kimberly Ambrose. [address] [place] [address], [place], [address], [place]. tel:[phone] Referring Provider: Kimberly Mosqueda MD [facility], [address] [place] [address], [place], [address]. tel:[phone] [facility], [address] [place] [address] [address], [place], [id number], [place] tel:[phone] [place] Varicose veins of bilateral lower extremities with pain 3 Panda KEYS FACS T [facility] Kimberly Ambrose. [address] [place] [address], [place], [address], [place]. tel:[phone] Referring Provider: Kimberly Mosqueda MD FACS T [facility], [address] [place] [address], [place], [address]. tel:[phone] Family History Family Member Type Diagnosis Age At Onset No Information Payers Payer name Insurance type Covered alliance party ID Luis gross(s) [facility] CI [id number] Social History Type Description Quantity Date Captured Comments Alcohol Use Details Unknown Caffeine Use Details Unknown Tobacco Use Status Smoking Status Smoker, current stat us unknown Non-Smoking Tobacco Use Details : No Details Available : No Details Available Sex Female Vital Signs Date / Time: Height Weight BMI Pulse Rate Blood Pressure Temperature Respiratory Rate Body Surface Area Head Circumference Head Circ. Percentile Wt./Rachid. Percentile BMI percentile Pulse Ox Inhaled Ox 122.020 kg (269.00 lbs) 46.2 7 kg/m eter (2) 142/82 mm[Hg] Chief Complaint And Reason For Visit No Information Reason For Referral Reason For Referral No Information Plan Of Treatment Date Type Action Status Goal Tobacco cessation counseling completed Goal Diet education completed Goal Diet education completed Goal Tobacco cessation counseling completed Goal Tobacco cessation counseling completed Goal Diet education completed Goal Diet education completed Goal Tobacco cessation counseling completed Referral Ordered: Weight management: Referral to physician timeframe: 3 Months (related to Body mass index (BMI) 45.0-49.9, adult) ordered Referral Ordered: NOT FOUND PCP timeframe: 3 Months (related to Essential (primary) hypertension) ordered Referral Ordered: Severiano Mosqueda MD, FACS, RVT, RPVI timeframe: 3 Months (related to Essential (primary) hypertension) ordered Referral Ordered: Weight management: Referral to physician timeframe: 3 Months (related to Body mass index (BMI) 45.0-49.9, adult) ordered History Of Present Illness Encounter Date Complaint History Of Prese nt Illness No Information Functional Status Date Functional Assessmen t No Information Instructions Date Instruction Additional Infor mation Giving Encouragement to exercise Related to Body mass index (BMI) 45.0-49.9, adult Lifestyle education Related to B ed mass index (BMI) 45.0-49.9, adult Patient education booklet given Related to Chronic venous hypertension (idiopathic) without complications of bilateral lower extremity Diet education Related to Essen tial (primary) hypertension Exercise education Related to Es sential (primary) hypertension Lifestyle education Related to E ssential (primary) hypertension Pre and post instruc tions reviewed and provided Related to Chronic venous hypertension (idiopathic) without complications of bilateral lower extremity Diet education Related to Body mass index (BMI) 45.0-49.9, adult Compression stocking usage as conservative measure Related to Varicose veins of right lower extremity with inflammation Patient education booklet given Related to Varicose veins of right lower extremity with inflammation Patient education booklet given Related to Varicose veins of right lower extremity with inflammation Pre and post instruc tions reviewed and provided Related to Varicose veins of right lower extremity with inflammation Exercise education Related to Es sential (primary) hypertension Lifestyle education Related to E ssential (primary) hypertension Diet education Related to Body mass index (BMI) 45.0-49.9, adult Diet education Related to Essen tial (primary) hypertension Giving Encouragement to exercise Related to Body mass index (BMI) 45.0-49.9, adult Lifestyle education Related to B ed mass index (BMI) 45.0-49.9, adult Patient education booklet given Related to Varicose veins of right lower extremity with inflammation Pre and post instruc tions reviewed and provided Related to Varicose veins of right lower extremity with inflammation Assessments Type Assessment Date No Information Patient Care Teams Name Effective Dates (start - stop) Status Members No Information
--- NOTE | 2025-04-08 09:13 | A.OFFVIS_ITS ---
Intake Visit Reasons: urinary incontinence Intake Note: New Patient presents for initial visit for urinary incontinence Urology Medications: none Blood Thinner: none PVR: 82ml's Child Care Attendant School Required: No Accompanied by: Unknown Allergies meperidine (From Demerol) Allergy (Mild, Verified 04/08/25 22:27) Unknown seafood Allergy (Mild, Verified 04/08/25 22:27) Unknown acetaminophen (From Tylenol) Allergy (Unknown, Verified 04/08/25 22:27) Unknown Iodinated Contrast Media Allergy (Unknown, Verified 04/08/25 22:27) Unknown pregabalin (From Lyrica) Allergy (Unknown, Verified 04/08/25 22:27) Unknown tramadol Allergy (Unknown, Verified 04/08/25 22:27) Unknown Medication List - Last Reconciled 04/08/25 by GIBRAN Ward- dicyclomine 20 mg PO QID PRN ibuprofen 600 mg PO Q8H PRN lorazepam 0.5 mg PO DAILY PRN medroxyprogesterone mg PO methadone 15 mg PO Q4-6H PRN PNV cmb#95-ferrous fumarate-FA 28 mg iron- 800 mcg () 1 tab PO QAM HPI Comments Details: Charisma is a 39-year-old female patient of Dr. Savage. She has a past medical history of left leg wound, hyperlipidemia, varicose veins, prediabetes, MS multiple sclerosis, seizures, cornual , constipation, cervical intraepithelial neoplasm II, chronic vomiting, cerebral edema, hypertension, anxiety, and depression. She presents to the office today as a new patient for incontinence and gross hematuria. In discussion with the patient today she reports a longstanding history of incontinence for many years however feels symptoms are worsening. She also reports new onset of gross hematuria over the last few months. She reports last episode was 2 weeks ago. In office urinalysis results reviewed with the patient today no microscopic hematuria noted. When asked she does report a history of nicotine dependence. She reports smoking approximately 1 pack per day since the age of [age] years old. She reports utilizing over 10 Silvana pads per day. She denies any previous vaginal births. She denies dysuria, foul smelling urine, changes to urinary stream, flank pain, fever, and or chills. She does report chronic generalized pain. We did discussed potential causes of gross hematuria as well as incontinence and further treatment options and risks and benefits of these treatment options. We did discussed the importance of limiting/quitting nicotine dependence for margarito martínez health and well-being. I discussed reasons for blood in the urine may include but are not limited to kidney stones, cancer in the urinary tract, kidney stone disease or inflammatory conditions of the urinary tract. I have discussed workup to include cystoscopy evaluation. All questions were answered. She otherwise offers no other issues or concerns at this time. [facility] Medical History Leg wound, left Hypocalcemia Hyperlipidemia Therapeutic Varicose veins of legs Urinary incontinence Pre-diabetes Multiple sclerosis History of seizure Disturbance of sleep Cornual Constipation MIKE II (cervical intraepithelial neoplasia II) Chronic vomiting Chronic chest pain Chronic back pain Chronic abdominal pain Cerebral edema Blood pressure elevated without history of HTN Black-out (not amnesia) Asymptomatic bacteriuria Anxiety and depression Alternating constipation and diarrhea Severe depression Costochondritis Chronic low back pain Surgical History Hx of tonsillectomy Hx of abdominal surgery Hx of right knee surgery Hx of hernia repair Hx of cholecystectomy History of back surgery (09/30/09) Family History Mother Diabetes White matter disease Arthritis Mental health problem Father Alpha 1-antitrypsin PiMS phenotype Social History Alcohol intake: never Tobacco use type: Cigarette Cigarette Packs Per Day: 1 Current occupational status: unemployed Review of Systems Eyes Reports no additional complaints ENT Reports no additional complaints Card Reports as per HPI Resp Reports as per HPI GI Reports as per HPI Reports as per HPI Musc Reports as per HPI Skin/Breast Reports as per HPI Neuro Reports as per HPI Psych Reports as per HPI Endo Reports as per HPI Physical Exam Const General: cooperative, comfortable, no acute distress, well developed, alert and awake Nutritional Appearance: obese Orientation/consciousness: patient oriented x3 HEENT Head: Yes normal to inspection Eyes General: appearance normal, both eyes and all related structures Neck Neck: Yes normal visual inspection Chest Chest palpation & inspection: normal inspection of the chest Resp Effort & Inspection: normal respiratory effort Cardio Rate: regular rate GI Inspection: Yes normal to inspection General: Yes no CVA tenderness Back/Spine/Pelvis Back: no CVA tenderness Skin Other: as per HPI Neuro General: patient oriented x3 Extrem Other: Bilateral lower leg edema Psych Speech and movement: Clear speech present Affect: normal affect Attitude: cooperative Thought content: Normal thought content present Insight: Fair insight present (Psych) Judgement: Fair judgement present (Psych) Office Procedures Post Void Residual Post Residual Void Post Void Residual (PVR): 82 [id number] Void Residual by ultrasound Results AMB Urinalysis, Automated UA Leukoctes 0 Maddison/uL [facility] on 04/08/25 09:38 UA Nitrite Last Edit by [facility] Brittanie [facility] on 04/08/25 09:38 UA Urobilinogen 0.2 mg/dL Last Edit by [facility] Brittanie [facility] on 04/08/25 09:3 8 UA Protein 0 mg/dL [facility] on 04/08/25 09:38 UA pH 7.0 Last Edit by [facility] Brittanie [facility] on 04/08/25 09:38 UA Blood 0 Stefano/uL [facility] Edit [facility] on 04/08/25 09:38 UA Specific Roy 1.015 Last Edit by [facility] Brittanie [facility] on 04/08/25 09: 38 UA Ketone Last Edit by [facility] Brittanie [facility] on 04/08/25 09:38 UA Bilirubin 0 mg/dL Last Edit by [facility] Brittanie [facility] on 04/08/25 09:38 UA Glucose 0 mg/dL Last Edit by [facility] Brittanie [facility] on 04/08/25 09:38 Results Reviewed Results Reviewed: Laboratory Last Values Urine pH (Auto) 7.0 04/08/25 09:37 Specific Roy (Auto) 1.015 04/08/25 09:37 Urine Protein (Auto) 0 mg/dL 04/08/25 09:37 Glucose (UA)(Auto) 0 mg/dL 04/08/25 09:37 Urine Blood (Auto) 0 Stefano/uL 04/08/25 09:37 Urine Bilirubin (Auto) 0 mg/dL 04/08/25 09:37 Urine Urobilinogen (Auto) 0.2 mg/dL 04/08/25 09:37 Leukocyte Esterase (Auto) 0 Maddison/uL 04/08/25 09:37 Assessment & Plan Assessment & Plan (1) Gross hematuria: Code(s): R31.0 - Gross hematuria Category: Medical (2) Incontinence: Code(s): R32 - Unspecified urinary incontinence Category: Medical Plan Results reviewed with the patient today; as noted above; will send for urine cytology PVR 82 mL We discussed potential causes of lower urinary tract symptoms and gross hematuria; we discussed further treatment options and risks and benefits of these treatment options. Will obtain CT urogram for further assessment evaluation. BUN and creatinine ordered for imaging. We did discuss in office cystoscopy; information provided. All questions were answered. We discussed the importance of timed/scheduled voiding given decreased mobility. Follow-up next available in office cystoscopy with imaging and labs to be completed prior; or sooner with any issues, concerns, and or questions. Orders: Orders AMB Urinalysis Automated Today Z13.9 - Encounter for screening, unspecified CT urogram Today R31.0 - Gross hematuria Blood Urea Nitrogen Today R39.15 - Urgency of urination Creatinine Today R39.15 - Urgency of urination AMB Post Void Residual by ultrasound Today R32 - Unspecified urinary incontinence Urine Cytology Today R31.9 - Hematuria, unspecified Patient Instructions: The patient had an opportunity to ask questions regarding the treatment plan. All questions were answered. Physical exam, labs, and imaging were discussed and reviewed in detail. As well as risks, benefits, and discussion of treatment choices. No major barriers to understanding were identified. The patient expressed understanding and agreement with the above treatment plan. The patient was made aware they should contact our office by phone for worsening of their current condition, the appearance of new symptoms, or with any questions or concerns. Compliance is encouraged with any medications and follow up testing that is ordered. It is a privilege to be allowed the opportunity to participate in? your urological care.? Again, if you have any questions or c oncerns If you have any questions or concerns please do not hesitate to contact me. The office is [phone]. This note is constructed using voice recognition software. While every effort has been made to ensure accuracy kelp or seagrass gatherer errors may have been included. Yours sincerely, BOBO Ward Coding Level of Care Code New Pt Level 3 (90673) Diagnoses Gross hematuria R31.0 Incontinence R32 CPT Codes Post Residual Void - PVR CPT Code: 12730-Ycnk Void Residual by ultrasound ([id number])
--- OUTSIDE RECORDS SUMMARY | 2025-04-08 09:32 | XMS_ITS | Clinical Summary ---
Author Organization [employer] Address [address] [facility] [address] [place] [address] Care Team Providers Care Professor Of Astronomy Name Role Phone Unavailable Primary Care Provider [...] NEEDED FOR PAIN 06/27/2022 Active nystatin (Mycostatin) 471149 UNIT/ML suspension Take 4 to 6ml and [...] Cancer Screening 2015 HPV/Cotest 2015 COVID-19 Vaccine (1 - 2023-2 5 season) 2024 Tobacco Screening 01/16/2025 01/17/2024 Influenza Vaccine (#1) 2025 Zoster Vaccines (1 of 2) 2035 [...] patient's age to complete this topic Insurance [facility] STAND ADULT
--- OUTSIDE RECORDS SUMMARY | 2025-04-08 09:33 | XMS_ITS | Clinical Summary ---
Author Organization [address] [facility] Address [address] [place] [address] Phone Care Team Providers Care Vice President Of Brand Management Name Role Phone Antione Traylor MD Primary Care Provider Encounters Date Type Department Care Team Description 01/13/2025 Lab Requisition [facility] [address] [place] [address] Josy Brown MD Encounter for gynecological examination (general) (routine) without abnormal findings 01/12/2025 Lab Requisition [facility] Lab [address] [place] [address] Josy Brown MD Encounter for screening for infections with a predominantly sexual mode of transmission from Last 3 Months Surgical History Surgery Date Site/Laterality Comments CERVICAL BIOPSY W/ LOOP ELECTRODE EXCISION PROCEDURE: MS CONIZATION CERVIX W/WO D&C RPR ELTRD EXC KNEE SURGERY PROCEDURE: HISTORICAL KNEE SURGERY TONSILLECTOMY PROCEDURE: HISTORICAL TONSILLECTOMY OTHER SURGICAL HISTORY PROCEDURE: MS EXPL RETROPERITONEUM W/WO BX SPX BACK SURGERY [...] 5 Years) and At-Risk Patients (6 to 49 Years) (1 of 2 - PCV) 2004 [...] LAB CHEMISTRY METHOD 01/13/2025 11:37 AM EDT [facility] ([facility]) [facility] Blood Venous blood specimen / Unknown Venipuncture / Unknown 01/12/2025 10:48 AM EDT 01/12/2025 12:07 PM EDT Josy Brown MD LAB BLOOD ORDERABLES Fin al Result Performing Organization Address City/[facility]/ZIP Co de Phone Number [facility] [address] [place] [address], [place] [phone] * (ABNORMAL) Testosterone free, bioavailable and total (01/12/2025 10:48 AM EDT) [facility] Signature Testosterone 15 9 - 48 ng/dL LAB CHEMISTRY METHOD 01/12/2025 4:42 PM EDT [facility] Testosterone, Free 0.7(H) 0.0 - 0.5 ng/dL LAB CHEMISTRY METHOD 01/12/2025 4:42 PM EDT [facility] Testosterone, Bioavailable 14(H) 1 - 9 ng/dL LAB CHEMISTRY METHOD 01/12/2025 4:42 PM EDT [facility] Sex Hormone Binding 2.8 See Comment nmol/L LAB CHEMISTRY METHOD 01/12/2025 4:42 PM EDT [facility] Comment: FEMALES: pre-menopausal 10.8 - [...] LAB CHEMISTRY METHOD 01/12/2025 4:42 PM EDT [facility] Blood Venous blood specimen / Unknown Venipuncture / Unknown 01/12/2025 10:48 AM EDT 01/12/2025 12:07 PM EDT Josy Brown MD LAB BLOOD ORDERABLES Fin al Result Performing Organization Address City/[facility]/ZIP Co de Phone Number [facility] [address] [place] [address], [place] [phone] * Sex hormone binding globulin (01/12/2025 10:48 AM EDT) Sex Hormone Binding 2.8 See Comment nmol/L LAB CHEMISTRY METHOD 01/12/2025 4:42 PM EDT [facility] Comment: FEMALES: pre-menopausal 10.8 - [...] ORDERABLES Fin al Result Performing Organization Address City/[facility]/ZIP Co de Phone Number [facility] [address] [place] [address], [place] [phone] * Prolactin (01/12/2025 10:48 AM EDT) [facility] Prolactin 4.00 See Comment ng/mL LAB CHEMISTRY METHOD 01/12/2025 1:23 PM EDT [facility] Comment: Prolactin Reference Ranges (ng/mL) Non 2.2 - 30.3 8.1 - 347.6 Postmenopausal 0.7 - 31.5 Blood Venous blood specimen / Unknown Venipuncture / Unknown 01/12/2025 10:48 AM EDT 01/12/2025 12:07 PM EDT us Josy Brown MD LAB BLOOD ORDERABLES Fin al Result Performing Organization Address City/[facility]/ZIP Co de Phone Number [facility] [address] [place] [address], * Progesterone (01/12/2025 10:48 AM EDT) Progesterone 0.5 ng/mL LAB CHEMISTRY METHOD 01/12/2025 1:23 PM EDT [facility] Comment: PROGESTERONE REFERENCE RANGES (NG/ML) [...] MD LAB BLOOD ORDERABLES Fin al Result [facility] [address] [place] [address], * Estradiol (01/12/2025 10:48 AM EDT) Estradiol 40 See below pcg/mL LAB CHEMISTRY METHOD 01/12/2025 1:23 PM EDT [facility] Comment: ESTRADIOL REFERENCE RANGES (PG/ML) [...] ORDERABLES Fin al Result Performing Organization Address [facility]/ZIP Co de Phone Number [facility] [address] [place] [address], [place] [phone] * Luteinizing hormone (01/12/2025 10:48 AM EDT) Luteinizing Hormone 6.0 See Comment mIU/mL LAB CHEMISTRY METHOD 01/12/2025 1:23 PM EDT [facility] Blood Venous blood specimen / Unknown Venipuncture / Unknown 01/12/2025 10:48 AM EDT 01/12/2025 12:07 PM EDT Narrative [facility] - 01/12/2025 1:23 PM EDT LH REFERENCE RANGES (MIU/ML) FEMALES NORMALLY MENSTRUATING: FOLLICULAR PHASE 1.9 - 12.8 MIDCYCLE PEAK 22.8 - 76.1 LUTEAL PHASE 0.6 - 13.5 POSTMENOPAUSAL: ON HRT 1.1 - 52.4 UNTREATED 8.6 - 61.8 us Josy Brown MD LAB BLOOD ORDERABLES Fin al Result Performing Organization Address City/[facility]/ZIP Co de Phone Number [facility] [address] [place] [address], [place] [phone] * Follicle stimulating hormone (01/12/2025 10:48 AM EDT) Follicle Stimulating Hormone 9.1 See Comment mIU/mL LAB CHEMISTRY METHOD 01/12/2025 2:17 PM EDT [facility] Comment: FSH REFERENCE RANGES (MIU/ML) [...] ORDERABLES Fin al Result Performing Organization Address [facility]/ZIP Co de Phone Number [facility] [address] [place] [address], [place] [phone] * HPV genotype (01/12/2025 12:00 AM EDT) HPV Type 16 Negative Negative LAB MICROBIOLOGY METHOD 01/15/2025 1:21 PM EDT [facility] HPV Type 18/45 Negative Negative LAB MICROBIOLOGY METHOD 01/15/2025 1:21 PM EDT [facility] HPV Type 16,18, and others Valid LAB MICROBIOLOGY METHOD 01/15/2025 1:21 PM EDT [facility] Brushing/Spatula Cervix uteri structure / Unknown 01/12/2025 01/13/2025 6:08 AM EDT us Josy Brown MD LAB MOLECULAR DIAGNOSTIC S ORDERABLES Final Result Performing Organization Address [facility]/ZIP Co de Phone Number [facility] [address] [place] [address], * (ABNORMAL) HPV with reflex genotype (01/12/2025 12:00 AM EDT) HPV Positive( A) Negative LAB MICROBIOLOGY METHOD 01/13/2025 2:03 PM EDT [facility] Brushing/Spatula Cervix uteri structure / Unknown 01/12/2025 01/13/2025 6:08 AM EDT us Josy Brown MD LAB MOLECULAR DIAGNOSTIC S ORDERABLES Final Result [facility] [address] [place] [address], [place] [phone] * Chlamydia trachomatis and Neisseria gonorrhoeae molecular study (01/12/2025 12:00 AM EDT) Neisseria gonorrhoeae PCR Negative Negative LAB MOLECULAR DIAGNOSTICS METHOD 01/13/2025 10:41 AM EDT [facility] Chlamydia trachomatis PCR Negative Negative LAB MOLECULAR DIAGNOSTICS METHOD 01/13/2025 10:41 AM EDT [facility] Swab Cervix uteri structure / Unknown 01/12/2025 01/12/2025 2:08 PM EDT Josy Brown MD LAB MICROBIOLOGY - GENER AL ORDERABLES Final Result Performing Organization Address City/[facility]/ZIP Co de Phone Number [facility] [address] [place] [address], [place] [phone] * Pap smear (01/12/2025 12:00 AM EDT) Interpretation Negative for intraepithelial lesion or malignancy 01/19/2025 5:47 PM EDT [facility] Clinical Information Hpv positive 01/19/2025 5:47 PM EDT [facility] General Categorization Negative 01/19/2025 5:47 PM EDT [facility] LMP 12/15/2024 01/19/2025 5:47 PM EDT [facility] Specimen Adequacy Satisfactory for evaluation, endocervical/dalton sformation zone component present 01/19/2025 5:47 PM EDT [facility] Pap Methodology Liquid Based Pap Test 01/19/2025 5:47 PM EDT [facility] Disclaimer The Pap test is a screening test which carries an inherent false negative rate. These test results should be correlated with the patient's clinical findings and history. This Pap test was processed using an automated screening system. Technical cytopathology services provided by [facility], at [address] [place] [address] (CLIA # [id number]/Marco Barrow MD, Tankage Grinder Operator.) 01/19/2025 5:47 PM EDT [facility] Console Pap Interpretation Reported 01/19/2025 5:47 PM EDT [facility] Brushing/Spatula Cervix uteri structure / Unknown 01/12/2025 01/13/2025 6:08 AM EDT us Josy Brown MD LAB CYTOLOGY ORDERABLES Final Result [facility]) [facility] [address] [place] [address], from Last 3 Months Insurance MEDICAID - [place] [facility] Care Teams Vice President Of Brand Management Relationship Specialty Start Date End Date Antione Traylor MD [address] [place], [place] [id number] [id number] PCP - General Internal Medicine 06/06/18
--- OUTSIDE RECORDS SUMMARY | 2025-04-08 09:33 | XMS_ITS | Patient Health Record ---
Author Organization [facility] Address [address] [facility] [address] [place] [address] Care Team Providers Care Steward/Stewardess Deck Name Role Phone Janette Chrissy Primary Care Provider Pantera Xavier Unavailable [phone] Allergies Allergen (clinical drug ingredient) Drug/Non Drug [...] Status W/U Status Risk Notes Problem Hyperlipidemia (96684658) Hyperlipidemia, unspecified (E78.5) Active confirmed Problem Cerebral edema () Cerebral edema (G93.6) Active confirmed Problem Essential hypertension (34487869) Essential (primary) hypertension (I10) Active confirmed Problem Skin ulcer of calf (681536633) 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) Active confirmed Problem Chronic ulcer of skin (85788958) Non-pressure chronic ulcer of skin of other sites with fat layer exposed (L98.492) Active confirmed Problem Moderate cervical dysplasia (538758552) Moderate cervical dysplasia (N87.1) Active confirmed Problem Urinary incontinence (656394491) Urinary incontinence in female (R32) Active confirmed [...] 02/23/2025 Encounters Encounter Location Date Provider Diagnosis [facility] [address] [address] 11/26/2024 Pantera Maurer Hyperlipidemia, unspecified E78.5 ; 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 without evidence of necrosis L97.225 and Essential (primary) hypertension I10 [facility] [address] [address] 02/23/2025 Pantera Maurer Non-pressure chronic ulcer of skin of other sites with fat layer exposed L98.492 ; Hyperlipidemia, unspecified E78.5 and Essential (primary) hypertension I10 [facility] [address] [address] 11/24/2024 Pantera Maurer [facility] [address] [place] [address] 11/26/2024 Pantera Maurer [facility] [address] [address] 12/10/2024 Pantera Maurer [facility] [address] [place] [address] 02/23/2025 Pantera Maurer [facility] [address] [address] 03/25/2025 Pantera Maurer Assessments Encounter Date Diagnosis [...] Other J 11/26/2024 Nav Zafar is a 49-tjfn-lzj-female that presents today for initial evaluation and [...] 200mg/dl to support healing. Follow up with laboratory apparatus glass blower for optimal glycemic control and wound healing [...] in the note. I, Pantera Maurer, MSN, VICE PRESIDENT OF COMMUNICATIONS, [employer], examined, evaluated, and treated the patient. Dr. Ben Esteves was available for any questions or concerns that I may have had. I, Dom Esteves MD confirm that Pantera Maurer, MSN, VICE PRESIDENT OF COMMUNICATIONS, [employer] understands and adheres to the guidelines of the established clinical protocols in the office. I confirm the above care provided was rendered under my general supervision as initially planned and subsequently discussed and supervised by me. 02/23/2025 Nav Zafar is a 81-asue-bcj-female, and is a returning patient that first presented [facility] for ulcer of let leg. She had a referral for vascular and [facility] dermatology, however she never came back to [...] in the note. I, Pantera Maurer, MSN, VICE PRESIDENT OF COMMUNICATIONS, [employer], examined, evaluated, and treated the patient. Dr. [...] Baldwin MD confirm that Pantera Maurer, MSN, VICE PRESIDENT OF COMMUNICATIONS, [employer] understands and adheres to the guidelines of [...] Insured Coverage Start Date Coverage End Date [facility] [address] [place] [id number] Charisma Palacio Self - patient is the [...]
== END 2025-04-08 10:10 | disposition home or self-care (01) ==
LOC: HO.HUSH 09:07
PROVIDERS: PCP Physician Assistant; Visit Provider Nurse Practitioner Family
DX: R31.0 Gross hematuria (principal); R32 Unspecified urinary incontinence; Z13.9 Encounter for screening, unspecified
CPT/HCPCS: 99203

== ENCOUNTER 2025-06-07 09:21 | Outpatient (REF) | payer OTHER, SELFPAY ==
--- OUTSIDE RECORDS SUMMARY | 2024-12-10 07:00 | XMS_ITS ---
Author Organization [facility] Address [address] [facility] [address] [place] [address] Care Team Providers Care Spindle Plumber Name Role Phone Janette Chrissy Primary Care Provider Pantera Xavier Unavailable [phone] REASON FOR VISIT FUV for chronic ulcers [...] Unknown Encounters Encounter Location Date Provider Diagnosis [facility] [address] [facility] [address] [place] [address] 12/10/2024 Pantera Maurer Hyperlipidemia, unspecified E78.5 ; [...] Notes * Sherri VARELAOB:1985 (40 yo F)Acc No.[id number]:12/10/2024 Follow-Up Visit Patient: Charisma PFEIFFER Provider: Kehinde Maurer NP :1985 A ge:39 Y S ex:Female Date:12/10/2024 Address:[address] [place] [address], [address] Pcp:Chrissy Savage Subjective: * Chief Complaints: * 1 . FUV for chronic ulcers. * HPI: W ound Care: Charisma is a 75-akxo-osc-female that presents has been followed since 10/2024 [...] Information: * Visit Code: * Procedure Codes: 43187 DEBRIDE TISSUE/MUSCLE. * Electronic signature of Giovani Maurer NP on 06/07/2025 at 10:32 AM EDT Sign off status: Pending * Provider: Kehinde Maurer NP Date: 0 12/10/2024 Generated for Sridhar heart/Aurora/Saschaitting on: 0 06/07/2025 10:32 AM EDT History and Physical Notes * HPI (History of Present Illness) Category Sub-Category Detail Notes Category Not es Wound Care Charisma is a 7-ncwb-xnm-female that presents has been followed since 10/2024 [...]
--- OUTSIDE RECORDS SUMMARY | 2024-12-15 09:30 | XMS_ITS ---
Author Organization [facility] Address [address] [facility] [facility] [address] [place] [address] Care Team Providers Care Tortilla Maker Name Role Phone Chrissy Savage Primary Care Provider Pantera Xavier Unavailable [phone] REASON FOR VISIT Follow up wound care [...] Active Encounters Encounter Location Date Provider Diagnosis [facility] [address] [facility] [facility] [address] [place] [address] 12/15/2024 Pantera Maurer Plan Of Treatment No Information Progress Notes * Sherri VARELAOB:1985 (40 yo F)Acc No.[id number]:12/15/2024 Follow-Up Visit Patient: Charisma FPEIFFER Provider: Kehinde Maurer NP :1985 A ge:39 Y S ex:Female Date:12/15/2024 Address:[address] [place] [address] [address], [place] Pcp:Chrissy Savage Subjective: * Chief Complaints: [...] of Giovani Maurer NP on 06/07/2025 at 10:33 AM EDT Sign off status: Pending * Provider: Kehinde Maurer NP Date: 0 12/15/2024 Generated for Sridhar heart/[place]urora/Josue on: 06/07/2025 10:33 AM EDT
--- OUTSIDE RECORDS SUMMARY | 2025-03-02 06:00 | XMS_ITS ---
Author Organization [facility] Address [address] [facility] [address] [place] [address] Care Team Providers Care Pump And Still Operator Name Role Phone Chrissy Savage Primary Care Provider Pantera Xavier Unavailable [phone] Encounters Encounter Location Date Provider Diagnosis [facility] [address] [facility] [address] [place] [address] 03/02/2025 Pantera Maurer Plan Of Treatment No Information Progress Notes * Sherri VARELAOB:1985 (40 yo F)Acc No.[id number]:03/02/2025 Follow-Up Visit Patient: Charisma PFEIFFER Provider: Kehinde Maurer NP :1985 A ge:39 Y S ex:Female Date:03/02/2025 Address:[address] [place] [address], [id number] Pcp:Chrissy Savage Subjective: * Chief Complaints: * * Medical History: Objective: * Vitals: Assessment: Plan: * Treatment: * Billing Information: * Visit Code: * Procedure Codes: * Electronic signature of Giovani Maurer NP on 06/07/2025 at 10:33 AM EDT Sign off status: Pending * Provider: Kehinde Maurer NP Date: 03/02/2025 Generated for Sridhar heart/Aurora/Josue on: 0 06/07/2025 10:33 AM EDT
--- OUTSIDE RECORDS SUMMARY | 2025-05-04 05:00 | XMS_ITS ---
Author Organization [facility] Address [address] [facility] [address] [place] [address] Care Team Providers Care Retail Chain Store Area Supervisor Name Role Phone NilsChrissy urbina Primary Care Provider Pantera Xavier Unavailable [phone] REASON FOR VISIT Returning Patient Visit Medications [...] Active Encounters Encounter Location Date Provider Diagnosis [facility] [address] [facility] [address] [place] [address] 05/04/2025 Pantera Maurer Assessments Encounter Date Diagnosis (ICD Code) Assessment Notes Treatment Notes Treatment Clinical Notes Section Notes 05/04/2025 Other Plan Of Treatment No Information Progress Notes * Sherri VARELAOB:1985 (40 yo F)Acc No.[id number]:05/04/2025 Returning Patient Visit Patient: Charisma PFEIFFER Provider: Kehinde Maurer NP :1985 A ge:39 Y S ex:Female Date:05/04/2025 Address:[address] [place] [address], [address] [place] [phone] Pcp:Chrissy Savage Subjective: * Chief Complaints: * [...] Pending * Provider: Kehinde Maurer NP Date: 05/04/2025 Generated for Sridhar heart/Aurora/Josue on: 0 06/07/2025 10:32 AM EDT
--- NOTE | ~2025-06-07 | CT_ITS ---
EXAMINATION: CT ABDOMEN AND PELVIS WITHOUT AND WITH CONTRAST CLINICAL INFORMATION: R31.0 - Gross hematuria COMPARISON: None available. TECHNIQUE: Noncontrast CT of the abdomen and pelvis is performed followed by split bolus contrast-enhanced images using 85 mL Omnipaque 350 contrast. Postcontrast imaging is performed during the combined nephrogram and excretion phase. Sagittal and coronal reformatted images were obtained on the technologist's workstation for both the precontrast and postcontrast phases. DLP: 1496 mGY*cm This CT examination was performed using dose optimization techniques as appropriate, variously including the following: *Automated exposure control *Adjustment of mA and/or kV according to patient size (this includes techniques or standardized protocols for targeted exams where dose is matched to indication/reason for exam; i.e. extremities or head) *Use of iterative reconstruction technique FINDINGS: LUNG BASES: The visualized lung bases are unremarkable. LIVER, GALLBLADDER, AND BILIARY TREE: There is decreased attenuation of the hepatic parenchyma. The gallbladder is surgically absent. There are clips in the gallbladder fossa. There is no biliary ductal dilation. PANCREAS: Unremarkable. SPLEEN: Unremarkable. ADRENAL GLANDS: Unremarkable. KIDNEYS AND URETERS: There are no stones in the kidneys or ureters. There is no hydronephrosis. with contrast, there is symmetrical contrast excretion from the kidneys into the ureters and bladder. There is persistent lobulation of the kidneys. BLADDER: Unremarkable. GASTROINTESTINAL TRACT: The small and large bowel are unremarkable. The appendix is unremarkable. ABDOMINAL WALL: Umbilical hernia contains adipose tissue. LYMPH NODES: Normal. VASCULAR: Unremarkable. PELVIC VISCERA: Uterus and ovaries are unremarkable. OSSEUS STRUCTURES: Unremarkable. CT/CT urogram IMPRESSION: Hepatic steatosis. Unremarkable kidneys and ureters. Cholecystectomy There is an umbilical containing fat. Fleischner guidelines followed. Electronically signed by: Deshaun Camp MD 06/07/2025 11:20 AM EDT
--- OUTSIDE RECORDS SUMMARY | 2025-06-07 10:33 | XMS_ITS | Clinical Summary ---
Author Organization [address] Address [address] [place] [address] Phone Care Team Providers Care Air Brush Decorator Name Role Phone Antione Traylor MD Primary Care Provider Surgical History Surgery Date Site/Laterality Comments CERVICAL BIOPSY W/ LOOP ELECTRODE EXCISION PROCEDURE: RI CONIZATION CERVIX W/WO D&C RPR ELTRD EXC KNEE SURGERY PROCEDURE: HISTORICAL KNEE SURGERY TONSILLECTOMY PROCEDURE: HISTORICAL TONSILLECTOMY OTHER SURGICAL HISTORY PROCEDURE: RI EXPL RETROPERITONEUM W/WO BX SPX BACK SURGERY [...] Health Maintenance Due Date Last Done Comments Breast Cancer Screening 1985 DTaP,Tdap,and Td Vaccines (1 - Tdap) 2004 Hepatitis B Vaccines (1 of 3 - 19+ 3-dose series) 2004 Pneumococcal Vaccine: Pediatrics (0 to 5 Years) and At-Risk Patients (6 to 49 Years) (1 of 2 - PCV) 2004 Hepatitis A Vaccines (2 of 2 - Risk 2-dose series) 05/11/2015 11/11/2014 Cholesterol Screening (Lipid Panel) 08/29/2022 HIV Screening 08/29/2022 Hepatitis C Screening 08/29/2022 Social Influencers of Health Screening 08/29/2022 Depression Screening 09/30/2024 COVID-19 Vaccine (1 - 2023-2 5 season) 2025 Influenza Vaccine (#1) 2025 Cervical Cancer Screening: [...] Name Priority Date/Time Associated Diagnosis Comments HPV WITH REFLEX GENOTYPE Routine 01/12/2025 12:00 AM EDT Encounter for gynecological examination (general) (routine) without abnormal findings from Last 3 Months or Most Recently Relevant to Health Maintenance Results * (ABNORMAL) HPV with reflex genotype (01/12/2025 12:00 AM EDT) HPV Positive( A) Negative LAB MICROBIOLOGY METHOD 01/13/2025 2:03 PM EDT [facility] Brushing/Spatula Cervix uteri structure / Unknown 01/12/2025 01/13/2025 6:08 AM EDT us Josy Brown MD LAB MOLECULAR DIAGNOSTIC S ORDERABLES Final Result [facility] [address] [place] [address], from Last 3 Months or Most Recently Relevant to Health Maintenance Insurance MEDICAID - [place] [facility] Care Teams Air Brush Decorator Relationship Specialty Start Date End Date Antione Traylor MD [address] [place] [id number] PCP - General Internal Medicine 06/06/18
--- OUTSIDE RECORDS SUMMARY | 2025-06-07 10:33 | XMS_ITS | Encounter Summary ---
Author Organization [facility] [place] [address] Care Team Providers Care Drinking Water Technician Name Role Phone Antione Traylor MD Primary Care Provider Encounter Details Date Type Department Care Team (Latest Contact Info) Description 01/12/2025 Lab Requisition [facility] [address] [facility] [place] [address] Josy Brown MD [address] [phone] Encounter for screening for infections with a [...] MOLECULAR DIAGNOSTICS METHOD 01/13/2025 10:41 AM EDT [facility] Chlamydia trachomatis PCR Negative Negative LAB MOLECULAR DIAGNOSTICS METHOD 01/13/2025 10:41 AM EDT [facility] Swab Cervix uteri structure / Unknown 01/12/2025 01/12/2025 2:08 PM EDT us Josy Brown MD LAB MICROBIOLOGY - GENER AL ORDERABLES Final Result [facility] [address] [place] [address], documented in this encounter Visit Diagnoses Diagnosis Encounter for screening for infections with a predominantly sexual mode of transmission documented in this encounter Care Teams Drinking Water Technician Relationship Specialty Start Date End Date Antione Traylor MD [address] [place] [phone] PCP - General Internal Medicine 06/06/18 documented as of this encounter
--- OUTSIDE RECORDS SUMMARY | 2025-06-07 10:33 | XMS_ITS | Encounter Summary ---
Author Organization [employer] Address [address] [facility] 7t [place] [address] Care Team Providers Care Major Assembly Inspector Name Role Phone Unavailable Primary Care Provider Unavailabl e Encounter Details Date Type Department Care Team (Late st Contact Info) Description 03/11/2023 Telephone [facility] [address] [place] [address] Gabriela Toussaint DDS Social History Tobacco Use [...]
--- OUTSIDE RECORDS SUMMARY | 2025-06-07 10:33 | XMS_ITS | Patient Health Record ---
Author Organization [facility] Address [address] [facility] [address] [place] [address] Care Team Providers Care Supervisor Mechanic Boilermaking Name Role Phone NilsAjit urbinaela Primary Care Provider Pantera Xavier Unavailable [phone] Allergies Allergen (clinical drug ingredient) Drug/Non Drug [...] Duration) Notes Start Date End Date Status Dicyclomine HCl 20 MG 1 tablet Orally Th ree times a day Unknown ARIPiprazole 5 MG 1 [...] empty stomach Orally Twice a day Active Methadone HCl Active Colchicine 0.6 MG 1 tablet Orally Not-Taking Pantoprazole Sodium 20 MG 1 tablet 1/2 t o 1 hour before morning meal Orally Once a day Active Ondansetron 4 MG 1 tablet on the tong ue and allow to dissolve Orally Once a day Active Problems Problem Type SNOMED Code ICD Code Onset Dates Problem Status W/U Status Risk Notes Problem Hyperlipidemia (88496903) Hyperlipidemia, unspecified (E78.5) Active confirmed Problem Cerebral edema () Cerebral edema (G93.6) Active confirmed Problem Essential hypertension (99365370) Essential (primary) hypertension (I10) Active confirmed Problem Skin ulcer of calf (279459212) 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) Active confirmed Problem Chronic ulcer of skin (47679687) Non-pressure chronic ulcer of skin of other sites with fat layer exposed (L98.492) Active confirmed Problem Moderate cervical dysplasia (245976115) Moderate cervical dysplasia (N87.1) Active confirmed Problem Urinary incontinence (099631395) Urinary incontinence in female (R32) Active confirmed [...] 02/23/2025 Encounters Encounter Location Date Provider Diagnosis [facility] [address] [address] 11/26/2024 Pantera Maurer Hyperlipidemia, unspecified E78.5 ; 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 without evidence of necrosis L97.225 and Essential (primary) hypertension I10 [facility] [address] [address] 02/23/2025 Pantera Maurer Non-pressure chronic ulcer of skin of other sites with fat layer exposed L98.492 ; Hyperlipidemia, unspecified E78.5 and Essential (primary) hypertension I10 [facility] [address] [address] 11/24/2024 Pantera Maurer [facility] [address] [place] [address] 11/26/2024 Pantera Maurer [facility] [address] [address] 12/10/2024 Pantera Maurer [facility] [address] [place] [address] 02/23/2025 Pantera Maurer [facility] [address] [address] 03/25/2025 Pantera Maurer [facility] [address] [place] [address] 04/26/2025 Pantera Maurer Assessments Encounter Date Diagnosis (ICD [...] hypertension (ICD-10 - I10) 12/10/2024 Other J 05/04/2025 Other 11/26/2024 Nav Zafar is a 77-bhly-aoz-female that presents today for initial evaluation and [...] 200mg/dl to support healing. Follow up with resource paraprofessional for optimal glycemic control and wound healing [...] in the note. I, Pantera Maurer, MSN, MAINTENANCE TECH, ASSEMBLY LINE MACHINE OPERATOR-C, examined, evaluated, and treated the patient. Dr. Ben Esteves was available for any questions or concerns that I may have had. I, Dom Esteves MD confirm that Pantera Maurer, MSN, MAINTENANCE TECH, ASSEMBLY LINE MACHINE OPERATOR-C understands and adheres to the guidelines of the established clinical protocols in the office. I confirm the above care provided was rendered under my general supervision as initially planned and subsequently discussed and supervised by me. 02/23/2025 Nav Zafar is a 78-hwkv-jog-female, and is a returning patient that first presented [facility] 11/26[facility]24 for ulcer of let leg. She had a referral for [facility], however she never came back to [...] in the note. I, Pantera Maurer, MSN, MAINTENANCE TECH, ASSEMBLY LINE MACHINE OPERATOR-C, examined, evaluated, and treated the patient. Dr. [...] Baldwin MD confirm that Pantera Maurer, MSN, MAINTENANCE TECH, ASSEMBLY LINE MACHINE OPERATOR-C understands and adheres to the guidelines of [...] Insured Coverage Start Date Coverage End Date [facility] [address] [place] [id number] Charisma Palacio Self - patient is the [...]
--- OUTSIDE RECORDS SUMMARY | 2025-06-07 10:33 | XMS_ITS | Clinical Summary ---
Author Organization [employer] Address [address] [facility] [address] [place] [address] Care Team Providers Care Hand Glass Cutter Name Role Phone Unavailable Primary Care Provider [...] NEEDED FOR PAIN 06/27/2022 Active nystatin (Mycostatin) 458100 UNIT/ML suspension Take 4 to 6ml and [...] Use Screening 1997 Family Planning (PISQ) 2000 HPV Vaccines (1 - 3-dose series) 2000 Hepatitis C Screening 2003 DTaP/Tdap/Td Vaccines (1 - Tdap) 2004 Hepatitis B Vaccines (1 of 3 - 19+ 3-dose series) 2004 Pap Smear 2006 Cervical Cancer Screening 2015 HPV/Cotest 2015 Tobacco Screening 01/16/2025 01/17/2024 Mammogram 2025 COVID-19 Vaccine (1 - 2023-2 5 season) 2025 Influenza Vaccine (#1) 2025 Zoster Vaccines (1 [...] patient's age to complete this topic Insurance [facility] MEDICAID STAND ADULT
--- OUTSIDE RECORDS SUMMARY | 2025-06-07 10:33 | XMS_ITS | Encounter Summary ---
Author Organization [facility] Address [address] [place] [address] Care Team Providers Care Sheet Metal Worker Name Role Phone Antione Traylor MD Primary Care Provider Encounter Details Date Type Department Care Team (Latest Contact Info) Description 01/13/2025 Lab Requisition [facility] Main Lab [address] [facility] [place] [address] Josy Brown MD [address] [facility] [address] [place] [id number] Encounter for gynecological examination (general) (routine) without [...] LAB MICROBIOLOGY METHOD 01/15/2025 1:21 PM EDT [facility] HPV Type 18/45 Negative Negative LAB MICROBIOLOGY METHOD 01/15/2025 1:21 PM EDT [facility] HPV Type 16,18, and others Valid LAB MICROBIOLOGY METHOD 01/15/2025 1:21 PM EDT [facility] Brushing/Spatula Cervix uteri structure / Unknown 01/12/2025 01/13/2025 6:08 AM EDT us Josy Brown MD LAB MOLECULAR DIAGNOSTIC S ORDERABLES Final Result Performing Organization Address City/[facility]/ZIP Co de Phone Number [facility] [address] [place] [address], [place] [phone] * (ABNORMAL) HPV with reflex genotype (01/12/2025 12:00 AM EDT) HPV Positive( A) Negative LAB MICROBIOLOGY METHOD 01/13/2025 2:03 PM EDT [facility] Brushing/Spatula Cervix uteri structure / Unknown 01/12/2025 01/13/2025 6:08 AM EDT us Josy Brown MD LAB MOLECULAR DIAGNOSTIC S ORDERABLES Final Result [facility] [address] [place] [address], [place] [phone] * Pap smear (01/12/2025 12:00 AM EDT) Interpretation Negative for intraepithelial lesion or malignancy 01/19/2025 5:47 PM EDT [facility] Clinical Information Hpv positive 01/19/2025 5:47 PM EDT [facility] General Categorization Negative 01/19/2025 5:47 PM EDT [facility] LMP 12/15/2024 01/19/2025 5:47 PM EDT [facility] Specimen Adequacy Satisfactory for evaluation, endocervical/dalton sformation zone component present 01/19/2025 5:47 PM EDT [facility] Pap Methodology Liquid Based Pap Test 01/19/2025 5:47 PM EDT [facility] Disclaimer The Pap test is a screening test which carries an inherent false negative rate. These test results should be correlated with the patient's clinical findings and history. This Pap test was processed using an automated screening system. Technical cytopathology services provided by [facility], at [address] [place] [address] (CLIA # [id number]/Marco Barrow MD, Schedule Announcer.) 01/19/2025 5:47 PM EDT [facility] Console Pap Interpretation Reported 01/19/2025 5:47 PM EDT [facility] Brushing/Spatula Cervix uteri structure / Unknown 01/12/2025 01/13/2025 6:08 AM EDT us Josy Brown MD LAB CYTOLOGY ORDERABLES Final Result [facility] [address] [place] [address], documented in this encounter Visit Diagnoses Diagnosis Encounter for gynecological examination (general) (routine) without abnormal findings documented in this encounter Care Teams Sheet Metal Worker Relationship Specialty Start Date End Date Antione Traylor MD [address] [place] [phone] PCP - General Internal Medicine 06/06/18 documented as of this encounter
[2025-06-07] MEDS: iohexoL 350 MG/ML 100 ML INFUS..BTL IV (10:52)
== END 2025-06-07 09:22 | disposition home or self-care (01) ==
LOC: HO.CT 09:21
PROVIDERS: PCP Physician Assistant; Visit Provider Nurse Practitioner Family
DX: R31.0 Gross hematuria (principal)
CPT/HCPCS: 74178; Q9967

== ENCOUNTER → 2025-06-07 10:30 | Outpatient (BNV) | payer OTHER, SELFPAY | PROVIDERS: PCP Physician Assistant; Visit Provider Radiology Diagnostic Radiology | DX: K76.0 Fatty (change of) liver, not elsewhere classified (principal) | CPT/HCPCS: 74178 ==

== ENCOUNTER 2025-06-17 14:35 | Outpatient (REF) | payer OTHER, SELFPAY | END 2025-06-17 14:36 | disposition home or self-care (01) | LOC: HO.LNP 14:35 | PROVIDERS: PCP Physician Assistant; Visit Provider Urology | DX: N32.89 Other specified disorders of bladder (principal); R31.0 Gross hematuria; R32 Unspecified urinary incontinence | CPT/HCPCS: 52000; 81003; 87086; 87088; 87186; 99212 ==

== ENCOUNTER 2025-06-17 14:35 | Outpatient (AMB) | payer OTHER, SELFPAY ==
--- NOTE | 2025-06-17 15:02 | A.OFFVIS_ITS ---
Intake Visit Reasons: cysto/ct Intake Note: Patient presents today for a cystoscopy/CT * 06/[address] Urology Medications: none Blood Thinner: none Shelf Drier Operator Required: No Accompanied by: Unknown Allergies meperidine (From Demerol) Allergy (Mild, Verified 06/17/25 15:03) Unknown seafood Allergy (Mild, Verified 06/17/25 15:03) Unknown acetaminophen (From Tylenol) Allergy (Unknown, Verified 06/17/25 15:03) Unknown Iodinated Contrast Media Allergy (Unknown, Verified 06/17/25 15:03) Unknown pregabalin (From Lyrica) Allergy (Unknown, Verified 06/17/25 15:03) Unknown tramadol Allergy (Unknown, Verified 06/17/25 15:03) Unknown Medication List - Last Reconciled 06/17/25 by Phoenix Hawley MD dicyclomine 20 mg PO QID PRN diphenhydramine HCl 50 mg PO ONCE ibuprofen 600 mg PO Q8H PRN lorazepam 0.5 mg PO DAILY PRN medroxyprogesterone mg PO methadone 15 mg PO Q4-6H PRN PNV no.95-ferrous fumarate-FA 28 mg iron- 800 mcg () 1 tab PO QAM prednisone Take one tablet 1 day before your test at 6pm, 12am, and at 6am on the appt date, bring 1 tab of prednisone to the appt to take prior to CT scan appt HPI Comments Details: 06/17/25--Charisma presents for office cystoscopy. She was initially evaluated on 04/08/2025 by nurse practitioner with complaints of urinary incontinence and episode of gross hematuria. The patient has history of nicotine dependence. Past medical history includes multiple sclerosis and history of cervical intraepithelial neoplasm stage II. CT urogram was reviewed performed on 06/07/2025 urinary tract was within normal limits. Urine cytology was sent on 04/08/2025 which came back negative for malignant cells. History of Present Illness The patient is a 40-year-old female presenting with urinary incontinence and gross hematuria. The urinary incontinence has been ongoing for approximately since she was a teenager, worsening in the last year, with the patient reporting continuous leakage without any urge to urinate. She changes pads multiple times a day due to significant wetness. The patient has a history of multiple sclerosis diagnosed in her early 20s, and the patient states she was having urinary leakage before the MS diagnosis. A CT urogram performed on 06/07/25 showed the urinary tract within normal limits, and urine cytology from 04/08/25 was negative for malignant cells. The patient reports a history of nicotine dependence and recurrent urinary tract infections, with the last episode occurring about a month and a half ago. Results - CT urogram on 06/07/25: Urinary tract within normal limits - Urine cytology on 04/08/25: Negative for malignant cells - Cystoscopy findings today: Bladder wall thickening, no suspicious bladder lesions visualized Plan 1. Urinary Incontinence - Schedule urodynamics to further evaluate bladder function - Consideration multiple sclerosis as potential contributors 2. Gross Hematuria - Cystoscopy performed; no abnormal lesions observed 3. UTI symptoms - Send urine for culture to rule out infection 04/08/25--Charisma is a 39-year-old female patient of Dr. Savage. She has a past medical history of left leg wound, hyperlipidemia, varicose veins, prediabetes, MS multiple sclerosis, seizures, cornual , constipation, cervical intraepithelial neoplasm II, chronic vomiting, cerebral edema, hypertension, anxiety, and depression. She presents to the office today as a new patient for incontinence and gross hematuria. In discussion with the patient today she reports a longstanding history of incontinence for many years however feels symptoms are worsening. She also reports new onset of gross hematuria over the last few months. She reports last episode was 2 weeks ago. In office urinalysis results reviewed with the patient today no microscopic hematuria noted. When asked she does report a history of nicotine dependence. She reports smoking approximately 1 pack per day since the age of [age] years old. She reports utilizing over 10 Silvana pads per day. She denies any previous vaginal births. She denies dysuria, foul smelling urine, changes to urinary stream, flank pain, fever, and or chills. She does report chronic generalized pain. We did discussed potential causes of gross hematuria as well as incontinence and further treatment options and risks and benefits of these treatment options. We did discussed the importance of limiting/quitting nicotine dependence for overall health and well-being. I discussed reasons for blood in the urine may include but are not limited to kidney stones, cancer in the urinary tract, kidney stone disease or inflammatory conditions of the urinary tract. I have discussed workup to include cystoscopy evaluation. All questions were answered. She otherwise offers no other issues or concerns at this time. [facility] Medical History Leg wound, left Hypocalcemia Hyperlipidemia Therapeutic Varicose veins of legs Urinary incontinence Pre-diabetes Multiple sclerosis History of seizure Disturbance of sleep Cornual Constipation MIKE II (cervical intraepithelial neoplasia II) Chronic vomiting Chronic chest pain Chronic back pain Chronic abdominal pain Cerebral edema Blood pressure elevated without history of HTN Black-out (not amnesia) Asymptomatic bacteriuria Anxiety and depression Alternating constipation and diarrhea Severe depression Costochondritis Chronic low back pain Surgical History Hx of tonsillectomy Hx of abdominal surgery Hx of right knee surgery Hx of hernia repair Hx of cholecystectomy History of back surgery (09/30/09) Family History Mother Diabetes White matter disease Arthritis Mental health problem Father Alpha 1-antitrypsin PiMS phenotype Social History Alcohol intake: never Tobacco use type: Cigarette Cigarette Packs Per Day: 1 Current occupational status: unemployed Review of Systems Const All systems reviewed & are unremarkable except as noted in HPI and below Reports no additional complaints Eyes Reports no additional complaints ENT Reports no additional complaints Card Reports no additional complaints Resp Reports no additional complaints GI Reports no additional complaints Reports as per HPI Musc Reports no additional complaints Skin/Breast Reports system reviewed and no additional complaints, except as documented Neuro Reports no additional complaints Psych Reports no additional complaints Endo Reports no additional complaints Landry/Lymph Reports no additional complaints Aller/Immun Reports no additional complaints Office Procedures Cystoscopy Consent Discussed risk and benefit or proposed procedure with the patient. Information consent for procedure given to the patient. Discussed technical aspects, risks, benefits and alternatives in full. Addressed all of the patient's questions and concerns regarding the procedure. The patient demonstrated knowledge and understanding. They wish to proceed with this procedure. Preparation The patient was prepped in the usual manner. A sales representative gas service was present and in the room. Genitalia was prepped with betadine solution in a sterile manner. Lidocaine Jelly 2% was placed into the urethra and 16Fr flexible Olympus cystoscope was inserted into the meatus after adequate lubrication. Procedure Time out per protocol performed. Speculum used as indicated for adequate visualization of urethra, the flexible cystoscope is passed transurethrally: The bladder was inspected in its entirety with utilization retroflexion displaying: Tumor(s): no suspicious bladder lesions visualized Trabeculation: Mild to Moderate Mucosal Erthema: Orifices: normal shape and position Urethra: normal Cystoscopy findings: Bladder wall thickening, no suspicious bladder lesions visualized [id number] DISPOSABLE SCOPE URO-G FLEXIBLE SCOPE Procedure code (CPT) selection complete Office Meds lidocaine HCl 2 % mucosal jelly in applicator Performing Provider: Phoenix Hawley MD Performing Location: [facility] Administered by: Varghese Hope LPN on 06/17/25 15:15 Dose Route Admin Location Dispensed Lot Number Expiration Date NDC [employer] 10 mL intra-urethral 20 mL nitrofurantoin monohydrate/macrocrystals 100 mg capsule Performing Provider: Phoenix Hawley MD Performing Location: [facility] Administered by: Varghese Hope LPN on 06/17/25 15:15 Dose Route Admin Location Dispensed Lot Number Expiration Date NDC [employer] 100 mg PO 1 cap Results Reviewed Results Reviewed: Date of Service: 06/07/25 Reason for Exam: R31.0 - Gross hematuria EXAMINATION: CT ABDOMEN AND PELVIS WITHOUT AND WITH CONTRAST CLINICAL INFORMATION: R31.0 - Gross hematuria COMPARISON: None available. TECHNIQUE: Noncontrast CT of the abdomen and pelvis is performed followed by split bolus contrast-enhanced images using 85 mL Omnipaque 350 contrast. Postcontrast imaging is performed during the combined nephrogram and excretion phase. Sagittal and coronal reformatted images were obtained on the technologist's workstation for both the precontrast and postcontrast phases. DLP: 1496 mGY*cm This CT examination was performed using dose optimization techniques as appropriate, variously including the following: *Automated exposure control *Adjustment of mA and/or kV according to patient size (this includes techniques or standardized protocols for targeted exams where dose is matched to indication/reason for exam; i.e. extremities or head) *Use of iterative reconstruction technique FINDINGS: LUNG BASES: The visualized lung bases are unremarkable. LIVER, GALLBLADDER, AND BILIARY TREE: There is decreased attenuation of the hepatic parenchyma. The gallbladder is surgically absent. There are clips in the gallbladder fossa. There is no biliary ductal dilation. PANCREAS: Unremarkable. SPLEEN: Unremarkable. ADRENAL GLANDS: Unremarkable. KIDNEYS AND URETERS: There are no stones in the kidneys or ureters. There is no hydronephrosis. with contrast, there is symmetrical contrast excretion from the kidneys into the ureters and bladder. There is persistent lobulation of the kidneys. BLADDER: Unremarkable. GASTROINTESTINAL TRACT: The small and large bowel are unremarkable. The appendix is unremarkable. ABDOMINAL WALL: Umbilical hernia contains adipose tissue. LYMPH NODES: Normal. VASCULAR: Unremarkable. PELVIC VISCERA: Uterus and ovaries are unremarkable. OSSEUS STRUCTURES: Unremarkable. CT/CT urogram IMPRESSION: Hepatic steatosis. Unremarkable kidneys and ureters. Collected: 04/08/25 [facility] Received: 04/09/25 Diagnosis Urine: Negative for high-grade urothelial carcinoma. See comment. COMMENT: Cellular specimen consisting of rare single urothelial cells, squamous cells and bacteria. Clinical History Hematuria Material Received Urine Gross Description Received is 56 cc of cloudy yellow fluid from which a ThinPrep slide is prepared. Assessment & Plan Assessment & Plan (1) Bladder wall thickening: Code(s): N32.89 - Other specified disorders of bladder Category: Medical (2) Multiple sclerosis: Code(s): G35 - Multiple sclerosis Category: Medical (3) Gross hematuria: Code(s): R31.0 - Gross hematuria Category: Medical (4) Urinary incontinence: Code(s): R32 - Unspecified urinary incontinence Category: Medical Plan Plan 1. Urinary Incontinence - Schedule urodynamics to further evaluate bladder function - Consideration multiple sclerosis as potential contributors 2. Gross Hematuria - Cystoscopy performed; no abnormal lesions observed 3. UTI symptoms - Send urine for culture to rule out infection Orders: Orders AMB Urinalysis Automated Today N32.89 - Other specified disorders of bladder, R31.0 - Gross hematuria, R32 - Unspecified urinary incontinence AMB Cystoscopy Today R31.0 - Gross hematuria, R32 - Unspecified urinary incontinence Patient Instructions: The patient had an opportunity to ask questions regarding treatment plan. The patient expressed understanding and agreement with the above treatment plan. The patient is aware they should contact our office by phone for worsening of their current condition or the appearance of new symptoms. Compliance is encouraged with any medications and followup testing that is ordered. It is a privilege to be allowed the opportunity to participate in the urologic care of your patient. If you have any questions or concerns regarding treatment for the above conditions please do not hesitate to contact me. The office teleph one contact is [phone]. This note is constructed in part using voice recognition software. While every effort has been made to ensure accuracy fisher diving errors may have been included. Yours sincerely, Phoenix Hawley MD Scribe Plan - Not visible on output: Patient was informed and verbally consented to the use of an ambient scribe for clinic note documentation during this visit. Coding Level of Care Code Est Pt Level 4 (90773) Diagnoses Bladder wall thickening N32.89 Multiple sclerosis G35 Gross hematuria R31.0 Urinary incontinence R32 CPT Codes Cystoscopy - CPT: 95298-[id number] ([id number])
--- OUTSIDE RECORDS SUMMARY | 2025-06-17 16:21 | XMS_ITS | Encounter Summary ---
Author Organization [facility] [place] [address] Care Team Providers Care Medical Office Supervisor Name Role Phone Antione Traylor MD Primary Care Provider Encounter Details Date Type Department Care Team (Latest Contact Info) Description 01/13/2025 Lab Requisition [facility] - Main Lab [address] [facility] [place] [address] Josy Brown MD [address] [facility] [address] [place] [phone] Encounter for gynecological examination (general) (routine) without [...] LAB MICROBIOLOGY METHOD 01/15/2025 1:21 PM EDT [facility] HPV Type 18/45 Negative Negative LAB MICROBIOLOGY METHOD 01/15/2025 1:21 PM EDT [facility] HPV Type 16,18, and others Valid LAB MICROBIOLOGY METHOD 01/15/2025 1:21 PM EDT [facility] Brushing/Spatula Cervix uteri structure / Unknown 01/12/2025 01/13/2025 6:08 AM EDT us Josy Brown MD LAB MOLECULAR DIAGNOSTIC S ORDERABLES Final Result Performing Organization Address City/[facility]/ZIP Co de Phone Number [facility] [address] [place] [address], [place] [phone] * (ABNORMAL) HPV with reflex genotype (01/12/2025 12:00 AM EDT) HPV Positive( A) Negative LAB MICROBIOLOGY METHOD 01/13/2025 2:03 PM EDT [facility] Brushing/Spatula Cervix uteri structure / Unknown 01/12/2025 01/13/2025 6:08 AM EDT us Josy Brown MD LAB MOLECULAR DIAGNOSTIC S ORDERABLES Final Result [facility] [address] [place] [address], [place] [phone] * Pap smear (01/12/2025 12:00 AM EDT) Interpretation Negative for intraepithelial lesion or malignancy 01/19/2025 5:47 PM EDT [facility] Clinical Information Hpv positive 01/19/2025 5:47 PM EDT [facility] General Categorization Negative 01/19/2025 5:47 PM EDT [facility] LMP 12/15/2024 01/19/2025 5:47 PM EDT [facility] Specimen Adequacy Satisfactory for evaluation, endocervical/dalton sformation zone component present 01/19/2025 5:47 PM EDT [facility] Pap Methodology Liquid Based Pap Test 01/19/2025 5:47 PM EDT [facility] Disclaimer The Pap test is a screening test which carries an inherent false negative rate. These test results should be correlated with the patient's clinical findings and history. This Pap test was processed using an automated screening system. Technical cytopathology services provided by [facility], at [address] [place] [address] (CLIA # [id number]/Marco Barrow MD, Community Health Outreach Worker.) 01/19/2025 5:47 PM EDT [facility] Console Pap Interpretation Reported 01/19/2025 5:47 PM EDT [facility] Brushing/Spatula Cervix uteri structure / Unknown 01/12/2025 01/13/2025 6:08 AM EDT us Josy Brown MD LAB CYTOLOGY ORDERABLES Final Result [facility] [address] [place] [address], documented in this encounter Visit Diagnoses Diagnosis Encounter for gynecological examination (general) (routine) without abnormal findings documented in this encounter Care Teams Medical Office Supervisor Relationship Specialty Start Date End Date Antione Traylor MD [address] [place] [phone] PCP - General Internal Medicine 06/06/18 documented as of this encounter
--- OUTSIDE RECORDS SUMMARY | 2025-06-17 16:21 | XMS_ITS | Clinical Summary ---
Author Organization [address] Address [address] [place] [phone] Phone Care Team Providers Care Signs And Displays Salesperson Name Role Phone Antione Traylor MD Primary Care Provider Surgical History Surgery Date Site/Laterality Comments CERVICAL BIOPSY W/ LOOP ELECTRODE EXCISION PROCEDURE: ID CONIZATION CERVIX W/WO D&C RPR ELTRD EXC KNEE SURGERY PROCEDURE: HISTORICAL KNEE SURGERY TONSILLECTOMY PROCEDURE: HISTORICAL TONSILLECTOMY OTHER SURGICAL HISTORY PROCEDURE: ID EXPL RETROPERITONEUM W/WO BX SPX BACK SURGERY [...] MOLECULAR DIAGNOSTIC S ORDERABLES Final Result [facility] [address] [place] [address], from Last 3 Months or Most Recently Relevant to Health Maintenance Insurance MEDICAID - [facility] Care Teams Signs And Displays Salesperson Relationship Specialty Start Date End Date Antione Traylor MD [address] [place] [phone] PCP - General Internal Medicine 06/06/18
--- OUTSIDE RECORDS SUMMARY | 2025-06-17 16:21 | XMS_ITS | Encounter Summary ---
Author Organization [employer] Address [address] [facility] [address] [facility] [address] [place] [address] Care Team Providers Care Breast Puller Name Role Phone Unavailable Primary Care Provider Unavailabl e Encounter Details Date Type Department Care Team (Late st Contact Info) Description 03/11/2023 Telephone [facility] ADULT DENTAL [address] [place] [address] Gabriela Toussaint DDS Social History Tobacco Use [...]
--- OUTSIDE RECORDS SUMMARY | 2025-06-17 16:21 | XMS_ITS | Clinical Summary ---
Author Organization [employer] Address [address] [facility] [address] [place] [address] Care Team Providers Care Electroencephalogram Technologist Name Role Phone Unavailable Primary Care Provider [...] NEEDED FOR PAIN 06/27/2022 Active nystatin (Mycostatin) 171806 UNIT/ML suspension Take 4 to 6ml and [...] patient's age to complete this topic Insurance [facility] MEDICAID STAND ADULT
--- OUTSIDE RECORDS SUMMARY | 2025-06-17 16:21 | XMS_ITS | Encounter Summary ---
Author Organization [facility] [place] [address] Care Team Providers Care Asic Engineer Name Role Phone Antione Traylor MD Primary Care Provider Encounter Details Date Type Department Care Team (Latest Contact Info) Description 01/12/2025 Lab Requisition [facility] - Main Lab [address] [facility] [facility] [place] [address] Josy Brown MD [address] [phone] Encounter for screening for infections with a [...] MOLECULAR DIAGNOSTICS METHOD 01/13/2025 10:41 AM EDT [facility] Chlamydia trachomatis PCR Negative Negative LAB MOLECULAR DIAGNOSTICS METHOD 01/13/2025 10:41 AM EDT [facility] Swab Cervix uteri structure / Unknown 01/12/2025 01/12/2025 2:08 PM EDT us Josy Brown MD LAB MICROBIOLOGY - GENER AL ORDERABLES Final Result [facility] [address] [place] [address], documented in this encounter Visit Diagnoses Diagnosis Encounter for screening for infections with a predominantly sexual mode of transmission documented in this encounter Care Teams Asic Engineer Relationship Specialty Start Date End Date Antione Traylor MD [address] [place] [phone] PCP - General Internal Medicine 06/06/18 documented as of this encounter
== END 2025-06-17 15:49 | disposition home or self-care (01) ==
LOC: HO.HUSH 14:36
PROVIDERS: PCP Physician Assistant; Visit Provider Urology
DX: N32.89 Other specified disorders of bladder (principal); G35 Multiple sclerosis; R31.0 Gross hematuria; R32 Unspecified urinary incontinence
CPT/HCPCS: 52000; 99214

== ENCOUNTER 2025-08-03 10:47 | Outpatient (AMB) | payer OTHER, SELFPAY ==
--- OUTSIDE RECORDS SUMMARY | 2024-12-03 05:30 | XMS_ITS ---
Author Organization [facility] Address [address] [facility] [address] [place] [address] Care Team Providers Care Electrician Station Assistant Name Role Phone Chrissy Savage Primary Care Provider Pantera Xavier Unavailable [phone] Encounters Encounter Location Date Provider Diagnosis [facility] [address] [facility] [address] [place] [address] 12/03/2024 Pantera Maurer Plan Of Treatment No Information Progress Notes * Sherri VARELAOB:1985 (40 yo F)Acc No.[id number]:12/03/2024 Patient: Charisma PFEIFFER Provider: Kehinde Maurer NP :1985 A ge:39 Y S ex:Female Date:12/03/2024 Address:[address] [place] [address], [address] [place], [place] [id number] Pcp:Chrissy Savage Subjective: * Chief Complaints: * * Medical History: Objective: * Vitals: Assessment: Plan: * Treatment: * Billing Information: * Visit Code: * Procedure Codes: * Electronic signature of Giovani Maurer NP on 08/03/2025 at 12:59 PM EST Sign off status: Pending * Provider: Kehinde Maurer NP Date: 0 12/03/2024 Generated for Sridhar heart/Aurora/Josue on: 10/03/2024 12:59 PM EST
--- OUTSIDE RECORDS SUMMARY | 2024-12-10 06:00 | XMS_ITS ---
Author Organization [facility] Address [address] [facility] [address] [place] [address] Care Team Providers Care Erco Machine Operator Name Role Phone JanetteChrissy Primary Care Provider Pantera Xavier Unavailable [phone] REASON FOR VISIT FUV for chronic ulcers Medications Medication SIG (Take, Route, Frequency, Duration) Notes Start Date End Date Status Ondansetron 4 MG 1 tablet on the tong ue and allow to dissolve Orally Once a day Active Pantoprazole Sodium 20 MG 1 tablet 1/2 t o 1 hour before morning meal Orally Once a day Active Carafate 1 GM 1 tablet on an empty stomach Orally Twice a day Active ARIPiprazole 5 MG 1 tablet Orally Once a day Active Banophen 50 MG 1 capsule at bedtime as needed Orally Once a day Active clonazePAM 0.5 MG 1 tablet Orally Once a day Active Famotidine 20 MG 1 tablet at bedtime as needed Orally Once a day Unknown Methadone HCl Active Colchicine 0.6 MG 1 tablet Orally Active Dicyclomine HCl 20 MG 1 tablet Orally Th ree times a day Unknown Encounters Encounter Location Date Provider Diagnosis [facility] [address] [facility] [address] [place] [address] 12/10/2024 Pantera Maurer Hyperlipidemia, unspecified E78.5 ; 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 without evidence of necrosis L97.225 and Essential (primary) hypertension I10 Assessments Encounter Date Diagnosis (ICD Code) Assessment Notes Treatment Notes Treatment Clinical Notes Section Notes 12/10/2024 Hyperlipidemia, unspecified (ICD-10 - E78.5) 12/10/2024 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 FUV for chronic ulcers. * HPI: W ound Care: Charisma is a 69-pixv-cfd-female that presents has been followed since 10/2024 for chronic ulcers to lower extremity. Past medical history is significant for HTN, HLD, morbid obesity, multiple sclerosis, varicose veins, cerebral edema, chronic pain of abdomen/chest/back The patient reports she first went to ortho about left foot, and ortho referred her to vascular and her appointment was on 11/12/24. However, she had to cancel vascular appointment due to illness. She was prescribed Doxycycline x 10days. She wears a walking boot to the left foot. * ROS: G eneral / Constitutional: Patient denies c hills, fatigue, fever, pain. ? R espiratory: Patient denies c hronic cough, shortness of breath, sputum production. S kin: Patient complains of a bscess's that continues to reoccur all over. * Medical History: A nxiety disorder, Depression, Bacteriuria, Cerebral edema, Chronic pain syndrome, Moderate cervical dysplasia, Seizures, Morbid (severe) obesity due to excess calories, Multiple sclerosis, Prediabetes, Urinary incontinence in female, Varicose vein of leg. * Medications: T aking Pantoprazole Sodium 20 MG Tablet Delayed Release 1 tablet 1/2 to 1 hour before morning meal Orally Once a day , Taking Ondansetron 4 MG Tablet Disintegrating 1 tablet on the tongue and allow to dissolve Orally Once a day , Taking Methadone HCl , Taking Colchicine 0.6 MG Tablet 1 tablet Orally , Taking clonazePAM 0.5 MG Tablet 1 tablet Orally Once a day , Taking Carafate 1 GM Tablet 1 tablet on an empty stomach Orally Twice a day , Taking Banophen 50 MG Capsule 1 capsule at bedtime as needed Orally Once a day , Taking ARIPiprazole 5 MG Tablet 1 tablet Orally Once a day , Unknown Famotidine 20 MG Tablet 1 tablet at bedtime as needed Orally Once a day , Unknown Dicyclomine HCl 20 MG Tablet 1 tablet Orally Three times a day , Medication List reviewed and reconciled with the patient Objective: * Vitals: Assessment: * Assessment: 1. N on-pressure chronic ulcer of left calf with muscle involvement without evidence of necrosis - L97.225 (Primary) 2 . H yperlipidemia, unspecified - E78.5 3 . E ssential (primary) hypertension - I10 Plan: * Treatment: * Procedure Codes: 1 1043 DEBRIDE TISSUE/MUSCLE * Follow Up: 1 Week * Billing Information: * Visit Code: * Procedure Codes: 05169 DEBRIDE TISSUE/MUSCLE. * Electronic signature of Giovani Maurer NP on 08/03/2025 at 12:59 PM EST Sign off status: Pending * Provider: Kehinde Maurer NP Date: 0 12/10/2024 Generated for Sridhar heart/Aurora/Saschaitting on: 1 10/03/2024 12:59 PM EST History and Physical Notes * HPI (History of Present Illness) Category Sub-Category Detail Notes Category Not es Wound Care Charisma is a 80-gryw-tsp-female that presents has been followed since 10/2024 for chronic ulcers to lower extremity. Past medical history is significant for HTN, HLD, morbid obesity, multiple sclerosis, varicose veins, cerebral edema, chronic pain of abdomen/chest/back The patient reports she first went to ortho about left foot, and ortho referred her to vascular and her appointment was on 11/12/24. However, she had to cancel vascular appointment due to illness. She was prescribed Doxycycline x 10days. She wears a walking boot to the left foot.
--- OUTSIDE RECORDS SUMMARY | 2024-12-15 08:30 | XMS_ITS ---
Author Organization [facility] Address [address] [place] [address] Care Team Providers Care Auto Service Mechanic Name Role Phone Chrissy Savage Primary Care Provider Pantera Xavier Unavailable [phone] REASON FOR VISIT Follow up wound care Medications Medication SIG (Take, Route, Frequency, Duration) Notes Start Date End Date Status Methadone HCl Active Famotidine 20 MG 1 tablet at bedtime as needed Orally Once a day Unknown Pantoprazole Sodium 20 MG 1 tablet 1/2 t o 1 hour before morning meal Orally Once a day Active Ondansetron 4 MG 1 tablet on the tong ue and allow to dissolve Orally Once a day Active ARIPiprazole 5 MG 1 tablet Orally Once a day Active Banophen 50 MG 1 capsule at bedtime as needed Orally Once a day Active clonazePAM 0.5 MG 1 tablet Orally Once a day Active Carafate 1 GM 1 tablet on an empty stomach Orally Twice a day Active Dicyclomine HCl 20 MG 1 tablet Orally Th ree times a day Unknown Colchicine 0.6 MG 1 tablet Orally Active Encounters Encounter Location Date Provider Diagnosis [facility] [address] [address] [place] [address] 12/15/2024 Pantera Maurer Plan Of Treatment No Information Progress Notes * Sherri VARELAOB:1985 (40 yo F)Acc No.[id number]:12/15/2024 Follow-Up Visit Patient: Charisma PFEIFFER Provider: Kehinde Maurer NP :1985 A ge:39 Y S ex:Female Date:12/15/2024 Address:[address] [place] [address], [address], [place] Pcp:Chrissy Savage Subjective: * Chief Complaints: * 1 . Follow up wound care. * Medical History: * Medications: T aking Pantoprazole Sodium 20 [...] 1 tablet Orally Three times a day Objective: * Vitals: Assessment: Plan: * Treatment: * Billing Information: * Visit Code: * Procedure Codes: * Electronic signature of Giovani Maurer NP on 08/03/2025 at 01:00 PM EST Sign off status: Pending * Provider: Kehinde Maurer NP Date: 0 12/15/2024 Generated for Sridhar heart/[place]/Josue on: 10/03/2024 01:00 PM EST
--- OUTSIDE RECORDS SUMMARY | 2025-03-02 05:00 | XMS_ITS ---
Author Organization [facility] Address [address] [facility] [address] [place] [address] Care Team Providers Care Stockroom Worker Name Role Phone Chrissy Savage Primary Care Provider Pantera Xavier Unavailable [phone] Encounters Encounter Location Date Provider Diagnosis [facility] [address] [facility] [address] [place] [address] 03/02/2025 Pantera Maurer Plan Of Treatment No Information Progress Notes * Sherri VARELAOB:1985 (40 yo F)Acc No.[id number]:03/02/2025 Follow-Up Visit Patient: Charisma PFEIFFER Provider: Kehinde Maurer NP :1985 A ge:39 Y S ex:Female Date:03/02/2025 Address:[address] [place] [address] [place], [place] [phone] Pcp:Chrissy Savage Subjective: * Chief Complaints: * * Medical History: Objective: * Vitals: Assessment: Plan: * Treatment: * Billing Information: * Visit Code: * Procedure Codes: * Electronic signature of Giovani Maurer NP on 08/03/2025 at 01:00 PM EST Sign off status: Pending * Provider: Kehinde Maurer NP Date: 03/02/2025 Generated for Sridhar heart/Aurora/Saschaitting on: 10/03/2024 01:00 PM EST
--- OUTSIDE RECORDS SUMMARY | 2025-05-04 04:00 | XMS_ITS ---
Author Organization [facility] Address [address] [facility] [address] [place] [address] Care Team Providers Care Building Superintendent Name Role Phone NilsChrissy urbina Primary Care Provider Pantera Xavier Unavailable [phone] REASON FOR VISIT Returning Patient Visit Medications Medication SIG (Take, Route, Frequency, Duration) Notes Start Date End Date Status ARIPiprazole 5 MG 1 tablet Orally Once a day Not-Taking Famotidine 20 MG 1 tablet at bedtime as needed Orally Once a day Unknown Banophen 50 MG 1 capsule at bedtime as needed Orally Once a day Not-Taking clonazePAM 0.5 MG 1 tablet Orally Once a day Active Carafate 1 GM 1 tablet on an empty stomach Orally Twice a day Active Dicyclomine HCl 20 MG 1 tablet Orally Th ree times a day Unknown Methadone HCl Active Colchicine 0.6 MG 1 tablet Orally Not-Taking Pantoprazole Sodium 20 MG 1 tablet 1/2 t o 1 hour before morning meal Orally Once a day Active Ondansetron 4 MG 1 tablet on the tong ue and allow to dissolve Orally Once a day Active Encounters Encounter Location Date Provider Diagnosis [facility] [address] [facility] [address] [place] [address] 05/04/2025 Pantera Maurer Assessments Encounter Date Diagnosis (ICD Code) Assessment Notes Treatment Notes Treatment Clinical Notes Section Notes 05/04/2025 Other Plan Of Treatment No Information Progress Notes * Sherri VARELAOB:1985 (40 yo F)Acc No.[id number]:05/04/2025 Returning Patient Visit Patient: Charisma PFEIFFER Provider: Kehinde Maurer NP :1985 A ge:39 Y S ex:Female Date:05/04/2025 Address:[address] [place] [address], [address] [place] [id number] Pcp:Chrissy Savage Subjective: * Chief Complaints: * 1 . Returning Patient Visit. 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 * Medications: T aking Pantoprazole Sodium 20 MG Tablet Delayed Release 1 tablet 1/2 to 1 hour before morning meal Orally Once a day , Taking Ondansetron 4 MG Tablet Disintegrating 1 tablet on the tongue and allow to dissolve Orally Once a day , Taking Methadone HCl , Taking clonazePAM 0.5 MG Tablet 1 tablet Orally Once a day , Taking Carafate 1 GM Tablet 1 tablet on an empty stomach Orally Twice a day , Not-Taking Colchicine 0.6 MG Tablet 1 tablet Orally , Not-Taking Banophen 50 MG Capsule 1 capsule at bedtime as needed Orally Once a day , Not-Taking ARIPiprazole 5 MG Tablet 1 tablet Orally Once a day , Unknown Famotidine 20 MG Tablet 1 tablet at bedtime as needed Orally Once a day , Unknown Dicyclomine HCl 20 MG Tablet 1 tablet Orally Three times a day , Medication List reviewed and reconciled with the patient Objective: * Vitals: Assessment: Plan: * Treatment: * Billing Information: * Visit Code: * Procedure Codes: * Electronic signature of Giovani Maurer NP on 08/03/2025 at 12:59 PM EST Sign off status: Pending * Provider: Kehinde Maurer NP Date: 0 05/04/2025 Generated for Sridhar heart/Aurora/Josue on: 1 10/03/2024 12:59 PM EST
[2025-08-03 10:51] VITALS: BP 180/113; PULSE 84; O2SAT 96; BMI 48.4
--- NOTE | 2025-08-03 10:51 | MHC.OFFVIS ---
Vital Signs 08/03/25 10:51 Height 5 ft 4 in Weight 282 lb 2 oz BMI 48.4 BP 180/113 H Blood Pressure Location Lt brachial Position Sitting Pulse 84 Pulse Source Pulse Oximeter Pulse Oximetry (%) 96 Oxygen Delivery Method Room Air Intake Visit Reasons: MRI follow up Allergies meperidine (From Demerol) Allergy (Mild, Verified 08/03/25 10:52) Unknown seafood Allergy (Mild, Verified 08/03/25 10:52) Unknown acetaminophen (From Tylenol) Allergy (Unknown, Verified 08/03/25 10:52) Unknown Iodinated Contrast Media Allergy (Unknown, Verified 08/03/25 10:52) Unknown pregabalin (From Lyrica) Allergy (Unknown, Verified 08/03/25 10:52) Unknown tramadol Allergy (Unknown, Verified 08/03/25 10:52) Unknown HPI Comments Details: The patient is a 40-year-old female presenting with chronic mid and lower back pain. The pain has been persistent and was initially evaluated in January, with MRIs completed in March. The thoracic MRI showed left central disc bulging at T8-T9 and T9-T10 without spinal stenosis, and the lumbar MRI indicated mild multilevel lumbar spondylosis, most significant at L4-L5 and L5-S1. The patient reports significant pain when standing up and leaning backwards, which is consistent with the findings of arthritis in the lumbar region. She has not undergone any procedures since the last visit and denies any hospitalizations or significant changes in her medical history. Patient is willing to undergo diagnostic lumbar medial branch blocks for potential lumbar radiofrequency ablation for a longer term pain management. The patient's BMI is 48, which limits certain procedural options for pain management, such as peripheral nerve stimulation Sprint system. - Affect: Pain significantly impacts mobility and daily activities - Analgesia: Considering nerve blocks and radiofrequency ablation for pain relief - Activities of Daily Living: Difficulty with mobility, impacting ability to exercise PRIOR: The patient is a 39-year-old female presenting with chronic low back pain and acute on chronic mid and lower thoracic pain. She also continues to endorse bilateral leg pain with active cellulites. She presents with bilateral lower extremity wound dressings and viktoria wraps due to open ulcers on her lower extremities. The low back pain has been chronic over 20 years, described with characteristics such as shooting, aching, stabbing, and radiating sensations. Mild multilevel degenerative disc disease has been identified in the thoracic spine, causing significant impairment, specifically with movements like leaning backward. Previously, 15 years ago, she underwent surgery for an arachnoid cyst located between her lumbar and thoracic spine, and recently, she has been diagnosed with white matter disease and MS, with MRIs showing brain swelling per patient. This was complete at [facility], reports is not available today. The patient continues on methadone therapy at a dose of 70 mg, although she reports minimal pain relief. - Chronic since 20 years - Quality: Shooting, aching, stabbing, radiating, and sharp - Location: Lower back, thoracic, both knees, legs, neck - Exacerbated by: Leaning backwards, movement - Alleviation attempts: Methadone 70 mg, ibuprofen, heat, and ice - Affect: Pain persists despite medication, causing significant distress and interference with activities. - Analgesia: Current medications include methadone at 70 mg with limited relief; ibuprofen noted to be ineffective. - Adverse Effects: No specific adverse effects from pain medication noted, but persistent pain leads to impaired sleeping. - Activities of Daily Living: Difficulties with movement, leaning backwards, walking due to dislocation issues, and potential impairment from multiple sclerosis per patient. - Aberrant Drug Related Behaviors: Not explicitly discussed. No evidence of misuse noted in the conversation. [facility] Medical History Leg wound, left Hypocalcemia Hyperlipidemia Therapeutic Varicose veins of legs Urinary incontinence Pre-diabetes Multiple sclerosis History of seizure Disturbance of sleep Cornual Constipation MIKE II (cervical intraepithelial neoplasia II) Chronic vomiting Chronic chest pain Chronic back pain Chronic abdominal pain Cerebral edema Blood pressure elevated without history of HTN Black-out (not amnesia) Asymptomatic bacteriuria Anxiety and depression Alternating constipation and diarrhea Severe depression Costochondritis Chronic low back pain Surgical History Hx of tonsillectomy Hx of abdominal surgery Hx of right knee surgery Hx of hernia repair Hx of cholecystectomy History of back surgery (09/30/09) Family History Mother Diabetes White matter disease Arthritis Mental health problem Father Alpha 1-antitrypsin PiMS phenotype Social History Alcohol intake: never Tobacco use type: Cigarette Cigarette Packs Per Day: 1 Current occupational status: unemployed Review of Systems Const All systems reviewed & are unremarkable except as noted in HPI and below Physical Exam Vital Signs: Last Vital Signs Pulse 84 08/03/25 10:51 BP 180/113 H 08/03/25 10:51 Pulse Ox 96 08/03/25 10:51 Oxygen Delivery Method Room Air 08/03/25 10:51 BMI result Body Mass Index 48.4 General: Appears afebrile. Morbidly obese. Alert and oriented. Mood and affect appropriate. Follows and participates in conversation appropriately. Respiratory effort is unlabored. No cough. Able to transition from sit to stand unassisted. Ambulates with bilaterally normal heel strike and toe off. Uses cane with ambulation. General: Yes no CVA tenderness Back/Spine/Pelvis Other: Limited thoracolumbar ROM due to pain. Sitting upright, walking, standing and leaning backwards reproduces moderate to severe lower back pain. Painful facet loading bilaterally. Bilateral lower extremities edema. Bilateral knee with limited ROM due to pain and body habitus. +Crepitus with flexion. Back: no CVA tenderness Cervical Spine: cervical ROM normal, cervical muscular tenderness and No Cervical spine tenderness Thoracic/Lumbar Spine: thoracic and lumbar spine normal to inspection, Lasegue's sign negative, straight leg raise negative bilaterally, pain with thoraco-lumbar ROM, paraspinal muscle tenderness, thoraco-lumbar ROM limited, thoracic spinal tenderness (mid to lower thoracic) and lumbar spinal tenderness (L4-S1) Pelvis: buttock tenderness bilaterally Sacroiliac joints: bilaterally tender to palpation Results Reviewed Results Reviewed: XR thoracic spine 3V 12/15/24 Findings: Normal vertebral body alignment. No acute fractures or dislocation. Mild multilevel degenerative disc disease. Interstitial opacities in the lungs may be bronchovascular crowding from low lung volumes, pulmonary edema or atypical infection. IMPRESSION: No acute fracture or listhesis of the thoracic spine. Interstitial opacities in the lungs may be bronchovascular crowding from low lung volumes, pulmonary edema or atypical infection. Lumbar spine 4-5 views 12/15/24 CLINICAL INDICATION: Low back pain. COMPARISON: None. FINDINGS: There is normal lumbar lordosis. The vertebral heights, alignment and disc heights are normal. No visible acute fracture, dislocation or subluxation seen. SI joints are symmetrical and normal. There is no pars defect or listhesis on oblique views. This paravertebral soft tissues are normal. IMPRESSION: Unremarkable lumbar spine exam. MR LUMBAR SPINE WITHOUT AND WITH CONTRAST 03/31/25 CLINICAL INFORMATION: Low back pain. Urinary and rectal incontinence. COMPARISON: None available. TECHNIQUE: MRI of the lumbar spine was obtained using routine sequences with and without contrast. Intravenous contrast: (Gadavist) 10.0 mL. No reported immediate complications. FINDINGS: Last rib-bearing vertebra labeled T12. No bone marrow STIR signal abnormality. Normal alignment. No abnormal enhancement within the leptomeninges, neural elements or the prevertebral compartment. Conus medullaris ends at superior endplate of L1 with normal signal. No elements of the filum terminalis and thecal sac demonstrated no signal abnormality or abnormal enhancement. No grouping or clumping. T12-L1: No disc herniation. No neuroforamina stenosis. L1-2: No disc herniation. No neuroforamina stenosis. L2-3: Broad-based disc bulging. No compression upon neural elements. L3-4: Broad-based disc bulging. Facet joint hypertrophy. Trace of facet effusion. No compression upon neural elements. L4-5: Broad-based disc bulging. Facet joint hypertrophy. Bilateral neuroforamina narrowing. Decreased AP diameter of the thecal sac. L5-S1: Broad-based disc bulging. Facet joint hypertrophy and facet effusion. Reduced AP diameter of the thecal sac. Bilateral neuroforamina narrowing. No prevertebral compartment hematoma, mass or fluid collections. IMPRESSION: No abnormal enhancement. No acute fracture or listhesis. Mild multilevel lumbar spondylosis more pronounced at L4-5 and L5-S1. No disc herniation. MRI thoracic spine without and with IV contrast 03/31/25 IV contrast: 10 mL Gadavist TECHNIQUE: Multiplanar multisequence imaging of the thoracic spine was performed from the C7-L1 without contrast. INDICATION: Chronic back pains, daily falls, lower extremity weakness, numbness, pain, incontinence,G96.198 - Other disorders of meninges, not elsewhere classified PRIOR: None FINDINGS: Moderate motion artifact is present in the upper thoracic spine. Marrow and end-plates: There are no marrow replacing lesions. Alignment: Vertebral body height and alignment is preserved. Soft tissues: Paraspinal soft tissues and major vascular structures are unremarkable. Metal artifact is seen posterior to facets between T4-T7 Cord: There is no abnormal cord signal. There is no hydrosyringomyelia. The termination of conus medullaris is within normal limits at the level of L1. T8-9 and T9-10: Left central disc bulge indents thecal sac without causing spinal stenosis. Thoracic disc levels not specifically described demonstrated no disc bulge, herniation, spinal stenosis, or foraminal narrowing. With contrast, there is physiologic enhancement without abnormality. IMPRESSION: No mass or other abnormality. Assessment & Plan Assessment & Plan (1) Chronic low back pain: Code(s): M54.50 - Low back pain, unspecified; G89.29 - Other chronic pain Category: Medical (2) Obesity, morbid, BMI 40.0-49.9: Code(s): E66.01 - Morbid (severe) obesity due to excess calories Category: Medical (3) Lumbosacral spondylosis: Code(s): M47.817 - Spondylosis without myelopathy or radiculopathy, lumbosacral region Category: Medical (4) Mid back pain: Code(s): M54.9 - Dorsalgia, unspecified Category: Medical Plan Thoracic and lumbar spine MRI imaging results were discussed with patient today. The plan includes scheduling the patient for nerve block injections to assess the response to pain relief, which will help determine the suitability for radiofrequency ablation. Due to the patient's BMI of 48, peripheral nerve stimulation procedures are not currently an option, but weight loss could make this a future possibility and reduce pain in lower back and knee joints. Schedule diagnostic bilateral L3-L4 DR L5 medial branch blocks with local and fluoroscopy. Expectations, risks and benefits were reviewed. Patient is aware she will be contacted to schedule this procedure All questions and concerns have been answered and patient agreed with the treatment plan. Follow up after injections and sooner as needed. Patient was informed and verbally consented to the use of an ambient scribe for clinic note documentation during this visit. Coding Level of Care Code Est Pt Level 4 (94994) Complex EM visit Add On G2211 Diagnoses Chronic low back pain M54.50; G89.29 Obesity, morbid, BMI 40.0-49.9 E66.01 Lumbosacral spondylosis M47.817 Mid back pain M54.9
--- OUTSIDE RECORDS SUMMARY | 2025-08-03 12:59 | XMS_ITS | Clinical Summary ---
Author Organization [employer] Address [address] [facility] [address] [place] [address] Care Team Providers Care Cloth Spreader Screen Printing Name Role Phone Unavailable Primary Care Provider [...] NEEDED FOR PAIN 06/27/2022 Active nystatin (Mycostatin) 853149 UNIT/ML suspension Take 4 to 6ml and [...] patient's age to complete this topic Insurance [facility] MEDICAID STAND ADULT
--- OUTSIDE RECORDS SUMMARY | 2025-08-03 13:00 | XMS_ITS | Encounter Summary ---
Author Organization [employer] Address [address] [facility] [address] [place] [address] Care Team Providers Care Account Group Supervisor Name Role Phone Unavailable Primary Care Provider Unavailabl e Encounter Details Date Type Department Care Team (Late st Contact Info) Description 03/11/2023 Telephone [facility] [address] [place] [address] Gabriela Toussaint DDS Social History Tobacco Use [...]
--- OUTSIDE RECORDS SUMMARY | 2025-08-03 13:00 | XMS_ITS | Encounter Summary ---
Author Organization [facility] [place] [address] Care Team Providers Care Puppet Engineer Name Role Phone Antione Traylor MD Primary Care Provider Encounter Details Date Type Department Care Team (Latest Contact Info) Description 01/12/2025 Lab Requisition [facility] - Main Lab [address] [facility] [place] [address] Josy Brown MD [address] [phone] Encounter for screening for infections with a [...] MICROBIOLOGY - GENER AL ORDERABLES Final Result [facility] [address] [place] [address], documented in this encounter Visit Diagnoses Diagnosis Encounter for screening for infections with a predominantly sexual mode of transmission documented in this encounter Care Teams Puppet Engineer Relationship Specialty Start Date End Date Antione Traylor MD [address] [place] [id number] PCP - General Internal Medicine 06/06/18 documented as of this encounter
--- OUTSIDE RECORDS SUMMARY | 2025-08-03 13:00 | XMS_ITS | Clinical Summary ---
Author Organization [address] Address [address] [place] [phone] Phone Care Team Providers Care Paper Rewinder Name Role Phone Antione Traylor MD Primary Care Provider Surgical History Surgery Date Site/Laterality Comments CERVICAL BIOPSY W/ LOOP ELECTRODE EXCISION PROCEDURE: MO CONIZATION CERVIX W/WO D&C RPR ELTRD EXC KNEE SURGERY PROCEDURE: HISTORICAL KNEE SURGERY TONSILLECTOMY PROCEDURE: HISTORICAL TONSILLECTOMY OTHER SURGICAL HISTORY PROCEDURE: MO EXPL RETROPERITONEUM W/WO BX SPX BACK SURGERY [...] Years) (1 of 2 - PCV) 2004 HPV Vaccines (1 - 3-dose SCD M series) 2012 Hepatitis A Vaccines (2 of 2 - Risk 2-dose series) 05/11/2015 11/11/2014 Cholesterol Screening (Lipid Panel) 08/29/2022 HIV Screening 08/29/2022 Hepatitis C Screening 08/29/2022 Social Influencers of Health Screening 08/29/2022 Depression Screening 09/30/2024 COVID-19 Vaccine (1 - 2023-2 5 season) 2025 Influenza Vaccine (#1) 2025 Cervical Cancer Screening: HPV 01/12/2030 0 01/12/2025, 01/12/2025 RSV Immunization Adult Patients (1 - 1-dose 75+ series) 2060 HIB Vaccines Aged Out No longer eligi [...] LAB MICROBIOLOGY METHOD 01/13/2025 2:03 PM EDT [facility] Brushing/Spatula Cervix uteri structure / Unknown 01/12/2025 01/13/2025 6:08 AM EDT Josy Brown MD LAB MOLECULAR DIAGNOSTIC S ORDERABLES Final Result [facility] [address] [place] [address], from Last 3 Months or Most Recently Relevant to Health Maintenance Insurance MEDICAID - [place] [facility] Care Teams Paper Rewinder Relationship Specialty Start Date End Date Antione Traylor MD [address] [place] [phone] PCP - General Internal Medicine 06/06/18
--- OUTSIDE RECORDS SUMMARY | 2025-08-03 13:00 | XMS_ITS | Patient Health Record ---
Author Organization [facility] Address [address] [place] [address] Care Team Providers Care Ticket Taker Ferryboat Name Role Phone NilsChrissy urbina Primary Care Provider Pantera Xavier Unavailable [phone] Allergies Allergen (clinical drug ingredient) Drug/Non Drug [...] Status W/U Status Risk Notes Problem Hyperlipidemia (29578806) Hyperlipidemia, unspecified (E78.5) Active confirmed Problem Cerebral edema () Cerebral edema (G93.6) Active confirmed Problem Essential hypertension (08964329) Essential (primary) hypertension (I10) Active confirmed Problem Skin ulcer of calf (954467050) 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) Active confirmed Problem Chronic ulcer of skin (18506052) Non-pressure chronic ulcer of skin of other sites with fat layer exposed (L98.492) Active confirmed Problem Moderate cervical dysplasia (595333932) Moderate cervical dysplasia (N87.1) Active confirmed Problem Urinary incontinence (683156657) Urinary incontinence in female (R32) Active confirmed [...] 02/23/2025 Encounters Encounter Location Date Provider Diagnosis [facility] [address] [address] 11/26/2024 Pantera Maurer Hyperlipidemia, unspecified E78.5 ; 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 without evidence of necrosis L97.225 and Essential (primary) hypertension I10 [facility] [address] [address] 02/23/2025 Pantera Maurer Non-pressure chronic ulcer of skin of other sites with fat layer exposed L98.492 ; Hyperlipidemia, unspecified E78.5 and Essential (primary) hypertension I10 [facility] [address] [address] 11/24/2024 Pantera Maurer [facility] [address] [place] [address] 11/26/2024 Pantera Maurer [facility] [address] [address] 12/10/2024 Pantera Maurer [facility] [address] [place] [address] 02/23/2025 Pantera Maurer [facility] [address] [address] 03/25/2025 Pantera Maurer [facility] [address] [place] [address] 04/26/2025 Pantera Maurer Assessments Encounter Date Diagnosis [...] 05/04/2025 Other 11/26/2024 Nav Zafar is a 27-iete-lsb-female that presents today for initial evaluation and [...] 200mg/dl to support healing. Follow up with steam plant records clerk for optimal glycemic control and wound healing [...] in the note. I, Pantera Maurer, MSN, PRINCIPAL BIOSTATISTICIAN, SOFTWARE COMPUTER SPECIALIST-C, examined, evaluated, and treated the patient. Dr. Ben Esteves was available for any questions or concerns that I may have had. I, Dom Esteves MD confirm that Pantera Maurer, MSN, PRINCIPAL BIOSTATISTICIAN, SOFTWARE COMPUTER SPECIALIST-C understands and adheres to the guidelines of the established clinical protocols in the office. I confirm the above care provided was rendered under my general supervision as initially planned and subsequently discussed and supervised by me. 02/23/2025 Nav Zafar is a 56-rubf-tei-female, and is a returning patient that first presented [facility]24 for ulcer of let leg. She had a referral for vascular and kopperl side dermatology, however she never came back [...] in the note. I, Pantera Maurer, MSN, PRINCIPAL BIOSTATISTICIAN, SOFTWARE COMPUTER SPECIALIST-C, examined, evaluated, and treated the patient. Dr. [...] Baldwin MD confirm that Pantera Maurer, MSN, PRINCIPAL BIOSTATISTICIAN, SOFTWARE COMPUTER SPECIALIST-C understands and adheres to the guidelines of [...] Insured Coverage Start Date Coverage End Date [facility] [address] [id number] Charisma Palacio Self - patient is the [...]
--- OUTSIDE RECORDS SUMMARY | 2025-08-03 13:01 | XMS_ITS | Encounter Summary ---
Author Organization [facility] [place] [address] Care Team Providers Care Floor Finisher Name Role Phone Antione Traylor MD Primary Care Provider [phone] Encounter Details Date Type Department Care Team (Latest Contact Info) Description 01/13/2025 Lab Requisition [facility] - Main Lab [address] [facility] [place] [address] Josy Brown MD 299 [facility] [address] [place] [phone] Encounter for gynecological examination (general) (routine) without [...] S ORDERABLES Final Result Performing Organization Address City/[facility]/ZIP Co de Phone Number [facility] [address] [place] [address], [place] [phone] * (ABNORMAL) HPV with reflex genotype (01/12/2025 12:00 AM EDT) HPV Positive( A) Negative LAB MICROBIOLOGY METHOD 01/13/2025 2:03 PM EDT [facility] Brushing/Spatula Cervix uteri structure / Unknown 01/12/2025 01/13/2025 6:08 AM EDT us Josy Brown MD LAB MOLECULAR DIAGNOSTIC S ORDERABLES Final Result [facility] [address] [place] [address], [place] [phone] * Pap smear (01/12/2025 12:00 AM EDT) [...] screening system. Technical cytopathology services provided by [facility], at [address] [place] [address] (CLIA # [id number]/Marco Barrow MD, Public Safety [employer].) 01/19/2025 5:47 PM EDT [facility] Console Pap Interpretation Reported 01/19/2025 5:47 PM EDT [facility] Brushing/Spatula Cervix uteri structure / Unknown 01/12/2025 01/13/2025 6:08 AM EDT us Josy Brown MD LAB CYTOLOGY ORDERABLES Final Result [facility] [address] [place] [address], documented in this encounter Visit Diagnoses Diagnosis Encounter for gynecological examination (general) (routine) without abnormal findings documented in this encounter Care Teams Floor Finisher Relationship Specialty Start Date End Date Antione Traylor MD [address] [place] [phone] PCP - General Internal Medicine 06/06/18 documented as of this encounter
== END 2025-08-03 11:08 | disposition home or self-care (01) ==
LOC: HO.PMC 10:47
PROVIDERS: PCP Physician Assistant; Visit Provider Nurse Practitioner Family
DX: M54.50 Low back pain, unspecified (principal); G89.29 Other chronic pain; E66.01 Morbid (severe) obesity due to excess calories; M47.817 Spondylosis without myelopathy or radiculopathy, lumbosacral region; M54.9 Dorsalgia, unspecified
CPT/HCPCS: 99214; G2211

== ENCOUNTER → 2025-08-03 10:47 | Outpatient (BNVA) | payer OTHER, SELFPAY | PROVIDERS: PCP Physician Assistant; Visit Provider Nurse Practitioner Family | DX: Z71.2 Person consulting for explanation of examination or test findings (principal); M54.50 Low back pain, unspecified; M47.817 Spondylosis without myelopathy or radiculopathy, lumbosacral region; E66.01 Morbid (severe) obesity due to excess calories; G89.29 Other chronic pain | CPT/HCPCS: 99212 ==